=== PATIENT | male | born 1955 | race Caucasian/White ===

== ENCOUNTER → 2018-05-31 | Day surgery (SDC) | payer BC ==
[~2018-05-31] VITALS: Ht 182.9 cm; Wt 81.6 kg
[~2018-05-31] MED LIST: ALTACE10 MG PO; AMLODIPINE BES2.5 MG PO; ASPIRIN81 M1 PO; CENTRUM SILVER1 EAC1 PO; FENTANYL CITRATE/PF 100MCG/2 ML INJ ONE; GABAPENTIN300 MG PO; GLIMEPIRIDE2 MG PO; HEPARIN 25,000 UNIT/D5W 250ML 250 ML IV SCH; HEPARIN 25,000U/0.45% NS 250ML 1,000 UNIT in SODIUM CHLORIDE 0.9% 250ML 0 ML IV SCH; HEPARIN SOD (PORCINE) 1000 UNIT/ML 30ML ONE; HEPARIN SOD (PORCINE) 5,000 UNIT/ML VIAL IV ONE; HEPARIN SOD/SOD CHLORIDE 1,000 ML ONE; HEPARIN SOD/SOD CHLORIDE 2,000 ML ONE; IOPAMIDOL 370 MG/ML 200 ML INFUS..BTL INJ ONE; JANUMET 50-1,01 EACH PO; LAMISIL250 MG PO; LIDOCAINE HCL 2% LOCAL 20 ML VIAL ONE; LIPITOR20 MG PO; METFORMIN HCL500 MG PO; MIDAZOLAM HCL 2 MG/2 ML VIAL ONE; NITROGLYCERIN/D5W 200 MCG/ML 0 ML ONE; SODIUM CHLORIDE 0.9% 1000ML 1,000 ML ONE; TRICOR145 MG PO; VICTOZA 2-0.6 MG/0.1; VITAMIN B12 PO; VITAMIN D1000 UNI1 PO
[2018-05-31 17:31] LABS: BASOPHILS # (AUTO) 0.1 (0.0-0.1); EOSINOPHILS # (AUTO) 0.2 (0.0-0.4); EOSINOPHILS % 1.6 % (0.0-6.0); HEMATOCRIT 32.2 % (38.2-49.6); HEMOGLOBIN 10.7 g/dL (14.0-18.0); LYMPHOCYTES # (AUTO) 1.4 (1.0-3.2); LYMPHOCYTES % 14.7 % (18.0-39.1); MEAN CORPUSCULAR HEMOGLOBIN 30.7 pg (28-32); MEAN CORPUSCULAR HGB CONC 33.2 g/dL (31-35); MEAN CORPUSCULAR VOLUME 92.5 fL (81-99); MONOCYTES # (AUTO) 0.7 (0.2-0.8); MONOCYTES % 7.8 % (4.4-11.3); NEUTROPHILS # (AUTO) 7.1 (2.1-6.9); NEUTROPHILS % 74.6 % (38.7-80.0); PLATELET COUNT 245 x10e3/uL (140-360); RED BLOOD COUNT 3.48 x10e6/uL (4.3-5.7); RED CELL DISTRIBUTION WIDTH 12.6 % (11.7-14.4)
[2018-05-31 17:40] LABS: INR 1.07; PROTHROMBIN TIME 13.1 seconds (11.9-14.5)
[2018-05-31 17:41] LABS: PARTIAL THROMBOPLASTIN TIME 27.2 seconds (23.8-35.5)
[2018-05-31 17:50] LABS: ALANINE AMINOTRANSFERASE 17 IU/L (0-55); ALBUMIN 4.1 g/dL (3.5-5.0); ALBUMIN/GLOBULIN RATIO 1.6 (0.8-2.0); ALKALINE PHOSPHATASE 86 IU/L (40-150); ANION GAP 13.3 mmol/L (8-16); BLOOD UREA NITROGEN 12 mg/dL (7-26); BUN/CREATININE RATIO 11 (6-25); CALCIUM 9.2 mg/dL (8.4-10.2); CARBON DIOXIDE 25 mmol/L (22-29); CHLORIDE 103 mmol/L (98-107); CREATINE KINASE 104 IU/L (30-200); CREATININE, SERUM 1.14 mg/dL (0.72-1.25); EST GLOMERULAR FILTRATION RATE > 60 ML/MIN (60-); GLUCOSE 176 mg/dL (74-118); POTASSIUM 4.3 mmol/L (3.5-5.1); SODIUM 137 mmol/L (136-145)
--- NOTE | 2018-05-31 18:16 | Diagnostic Imaging Report ---
EXAMINATION: CHEST 2 VIEWS INDICATION: Abnormal stress test COMPARISON: Chest x-ray 09/24/2009 FINDINGS: PA and lateral views TUBES and LINES: None. LUNGS: Lungs are well inflated. There is no evidence of pneumonia or pulmonary edema. PLEURA: No pleural effusion or pneumothorax. HEART AND MEDIASTINUM: The heart is normal in size. There is mild aortic ectasia. BONES AND SOFT TISSUES: No focal osseous lesions. Soft tissues are unremarkable. UPPER ABDOMEN: No free air under the diaphragm. IMPRESSION: No acute thoracic abnormality. Signed by: Dr. Henry Handley MD on 05/31/2018 6:12 PM
[2018-05-31 19:39] VITALS: BP 147/80
--- NOTE | 2018-05-31 19:55 | History and Physical ---
CHIEF COMPLAINT: Chest tightness. 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 Stewart because of an abnormal stress test. Patient apparently underwent a stress test today and was found to have ST depressions and was symptomatic. Patient states the past 2 months, he has had worsening dyspnea on exertion, as well as intermittent episodes of chest tightness. Patient is currently chest pain free, but EKG done in the emergency room did reveal ST depressions in the lateral leads. In the emergency room, patient's hemoglobin was low at 10.7 g/dL. Patient's initial troponin-I was elevated at 2.419. X-ray done in the emergency room revealed no acute thoracic abnormality. The patient was found to have a PT/INR of 13.1 and 1.07 respectively. Patient was admitted to the hospital and most likely will go to the heart catheterization lab. REVIEW OF SYSTEMS GENERAL: Weight has been stable. No fever or chills. HEENT: No headaches, no visual changes. CARDIOVASCULAR: Over the last 2 months, patient had dyspnea on exertion and intermittent episodes of exertional angina. GI: Slight nausea today during the stress test. No vomiting. Patient denies any melena or hematochezia. : Denies any hematuria. NEUROMUSCULAR: Denies any limb weakness, numbness. ALLERGIES: NO KNOWN DRUG ALLERGIES. PAST MEDICAL HISTORY 1. Cerebrovascular disease (left frontal ischemic stroke with residual right facial drooping in March 2017). 2. Hypertensive heart disease. 3. Type-2 diabetes mellitus. 4. Hyperlipidemia. 5. Tobacco abuse (patient quit in October 2017). 6. Mild carotid atherosclerosis. SURGICAL HISTORY: Multiple left foot surgeries. FAMILY HISTORY: No family history of strokes, but father had coronary artery disease. SOCIAL HISTORY: The man is , lives with . 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 Patient was a heavy tobacco smoker, but quit in October 2017. Patient says he just drinks alcohol socially. HOME MEDICATIONS 1. Clopidogrel 75 mg daily. 2. Aspirin 81 mg daily. 3. Metformin 500 mg b.i.d. 4. Glimepiride 2 mg daily. 5. Ramipril 10 mg daily. 6. Fenofibrate 145 mg daily. 7. Gabapentin 300 mg nightly. 8. Multivitamins daily. 9. Vitamin B12 500 mcg daily. 10. Atorvastatin 20 mg nightly. 11. Amlodipine 5 mg daily. EXAM GENERAL: He is awake, alert, not in distress, very pleasant, and cooperative with exam. At this time, he does not appear to be in any distress. VITALS: Blood pressure is 125/72, pulse 84, respiratory rate 16, temperature 98.2, oxygen saturation 97% on room air. Height is 6 feet 0 inch. Weight 180 lbs. BMI 24. INTEGUMENT: Skin is warm and dry. No pallor, jaundice, diaphoresis. HEENT: Anicteric sclerae. Moist mucous membranes. NECK: Supple. CARDIOVASCULAR: Distant heart sounds. Regular rate and rhythm. LUNGS: No rales, no rhonchi, no wheezes. ABDOMEN: Benign. EXTREMITIES: No edema or deformity. NEUROLOGIC: Patient has no focal deficits at this time, no dysarthria, no facial drooping. DIAGNOSES 1. Acute coronary syndrome (Non ST elevated myocardial infarction). 2. Cerebrovascular disease (history of left-sided cerebrovascular accident in March 2017). 3. Hypertensive heart disease. 4. Type-2 diabetes mellitus. 5. Hyperlipidemia. 6. Previous tobacco smoker, quit in October 2017. PLAN 1. Commend patient for his wanting to quit smoking tobacco. 2. Patient will go to the catheterization lab today. 3. Will check results of the 2-D echocardiogram. 4. Will check lipid profile. 5. Continue home medications. 6. We discussed the case with cardiology. I spent 40 minutes in the care of the patient. Job#: [id number] BRISEIDA
[2018-05-31 19:56] LABS: CHOL/HDL RATIO 2.3 (3.9-4.7)
--- NOTE | 2018-05-31 21:16 | Operative Report ---
DATE OF PROCEDURE: May 31, 2018 [employer] ASSISTANT PROCEDURE INDICATION: Non-ST segment elevation myocardial infarction. PROCEDURES PERFORMED 1. Left heart catheterization. 2. Selective coronary angiography. 3. Placement of intraaortic balloon pump. COMPLICATIONS: None. RECOMMENDATIONS: Emergency coronary artery bypass surgery. Access was obtained in the right femoral artery. A 6-Spanish sheath was placed. Diagnostic coronary angiogram revealed distal left main of at least 90% stenosis with visible thrombus. Left anterior descending, circumflex, diagonal views right coronary artery had mild disease of 20%-30%. Left internal mammary artery was widely patent. Sheath was exchanged with 8.5-Spanish sheath. Intraaortic balloon pump 40 mL was introduced and counter pulsation initiated without complications. Sheath was secured in place. Patient was transferred for emergency coronary artery bypass surgery. Job#: [id number] CQ
== END | disposition other institution (70) ==
LOC: ER 16:41 → CATH LAB 19:03
PROVIDERS: ATTEND Internal Medicine
DX: I21.4 Non-ST elevation (NSTEMI) myocardial infarction (principal); I69.392 Facial weakness following cerebral infarction; I11.9 Hypertensive heart disease without heart failure; E11.9 Type 2 diabetes mellitus without complications; E78.5 Hyperlipidemia, unspecified; Z79.02 Long term (current) use of antithrombotics/antiplatelets; Z79.82 Long term (current) use of aspirin; Z79.84 Long term (current) use of oral hypoglycemic drugs; Z87.891 Personal history of nicotine dependence; Z82.49 Family history of ischemic heart disease and other diseases of the circulatory system
CPT/HCPCS: 33967; 36415; 71046; 80053; 80061; 82550; 82553; 84484; 85025; 85610; 85730; 93005; 93455; 99284; J1644 ×2; J2001; J2250; J7030; J7050; Q9967

== ENCOUNTER → 2018-07-30 | Day surgery (SDC) | payer BC ==
[~2018-07-30] MED LIST changes: +ATORVASTATIN CA80 MG PO; +GLIMEPIRIDE1 MG; -HEPARIN 25,000 UNIT/D5W 250ML 250 ML IV SCH; -HEPARIN 25,000U/0.45% NS 250ML 1,000 UNIT in SODIUM CHLORIDE 0.9% 250ML 0 ML IV SCH; -HEPARIN SOD (PORCINE) 1000 UNIT/ML 30ML ONE; -HEPARIN SOD (PORCINE) 5,000 UNIT/ML VIAL IV ONE; -HEPARIN SOD/SOD CHLORIDE 1,000 ML ONE; -HEPARIN SOD/SOD CHLORIDE 2,000 ML ONE; -IOPAMIDOL 370 MG/ML 200 ML INFUS..BTL INJ ONE; -LIDOCAINE HCL 2% LOCAL 20 ML VIAL ONE; +METOPROLOL TART25 MG PO; -NITROGLYCERIN/D5W 200 MCG/ML 0 ML ONE; +OR PHACO EYE KIT ONE; +PREOP PHACO EYE KIT ONE; -SODIUM CHLORIDE 0.9% 1000ML 1,000 ML ONE
--- OUTSIDE RECORDS SUMMARY | 2018-07-30 14:48 | XMS REPORT | Continuity of Care Document ---
Author Author [facility] Interface Address Unknown Phone Unavailable Problems Problem Status Onset Date Classification Date Reported Comments Source DX: M86.9=OSTEOMYELITIS, UNSPECIFIED//3 Active 11/13/2016 [facility] Medications Medication Details Route Status Patient Instructions Ordering Provider Order Date Source Allergies, Adverse Reactions, Alerts Substance Category Reaction Severity Reaction type Status Date Reported Comments Source Immunizations Immunization Date Given Site Status Last Updated Comments Source Results Order Name Results Value Reference Range Date Interpretation Comments Source Bone scan 3 phase NM Bone scan 3 phase NM TRIPLE PHASE BONE SCAN OF THE FEET: HISTORY: Left 3rd toe wound. TECHNIQUE: 27.4 mCi of technetium 99m MDP were given intravenously followed by perfusion, blood pool and delayed static imaging over the feet. FINDINGS: There is increased perfusion and blood pool activity in the left foot with focally increased blood pool activity seen in the left midfoot and 1st toe. There is increased osseous activity in the left midfoot. There is increased activity in the left 1st metatarsal. There is focally increased osseous activity in the left 3rd toe. There are no other imaging studies available for comparison. IMPRESSION: 1. Findings suspicious for osteomyelitis of the left 1st metatarsal. Radiographic or higher-level imaging correlation is recommended. 2. Findings suspicious for osteomyelitis in the left 3rd toe. 3. Activity in the left midfoot most likely representing arthropathy. [id number] 11/17/2016 - - Read by: Jeyson Alicea MD Dictated Date/time: 11/17/16 16:20 Electronically Signed by: Jeyson Alicea MD 11/17/16 16:25 FINAL REPORT [facility] Vital Signs Vital Sign Value Date Comments Source Encounters Location Location Details Encounter Type Encounter Number Reason For Visit Attending Provider ADM Date DC Date Status Source [facility] Out[facility] [id number] Dionte Edward 11/17/2016 11/18/2016 [facility] Procedures Procedure Code Date Perfomer Comments Source
--- OUTSIDE RECORDS SUMMARY | 2018-07-30 14:48 | XMS REPORT | Clinical Summary ---
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 Disp. Refills Start End Date Status Date gabapentin (NEURONTIN) Take 300 mg by mouth 2 Active 300 MG capsule (two) times daily. ramipril (ALTACE) 10 MG Take 20 mg by mouth Active capsule daily. metFORMIN (GLUCOPHAGE) Take 1,000 mg by mouth Active 1000 MG tablet every morning. metFORMIN (GLUCOPHAGE) Take 500 mg by mouth Active 500 MG tablet every evening. glimepiride (AMARYL) 1 MG Take 1 mg by mouth 2 Active tablet (two) times daily. vitamin E 400 UNIT Take 400 Units by mouth Active capsule daily. cholecalciferol, vitamin Take 1,000 Units by mouth Active D3, 2,000 unit Cap daily. mwuatloz-qrpx-sjf-folic Take 1 tablet by mouth. Active acid (MOXWOKTWODJG-XURN-NHGFIJ LS-FOLIC ACID) 3,500-18-0.4 unit-mg-mg Chew cyanocobalamin (VITAMIN Take 1,000 mcg by mouth Active B-12) 1000 MCG tablet daily. aspirin 81 MG EC tablet Take 1 tablet (81 mg 30 tablet 0 06/09/06/09/20 Active total) by mouth daily. 18 19 atorvastatin (LIPITOR) 80 Take 1 tablet (80 mg 30 tablet 0 06/08/06/08/20 Active MG tablet total) by mouth nightly. 18 19 furosemide (LASIX) 20 MG Take 1 tablet (20 mg 30 tablet 0 06/10/06/10/20 Active tablet total) by mouth daily. 18 19 metoprolol (LOPRESSOR) 25 Take 1 tablet (25 mg 60 tablet 0 06/09/20 06/09/20 Active MG tablet total) by mouth 2 (two) 18 19 times daily. clopidogrel (PLAVIX) 75 Take 75 mg by mouth 06/08/20 Discontin mg tablet daily. 18 ued amLODIPine (NORVASC) 5 MG Take 10 mg by mouth 06/08/20 Discontin tablet daily. 18 ued atorvastatin (LIPITOR) 40 Take 40 mg by mouth every 06/08/20 Discontin MG tablet evening. 18 ued aspirin 325 MG tablet Take 200 mg by mouth 06/08/20 Discontin daily. 18 ued acetaminophen-codeine Take 1 tablet by mouth 20 tablet 0 06/08/20 06/13/20 (TYLENOL #3) 300-30 mg every 6 (six) hours as 18 18 per tablet needed for up to 5 days. Max Daily Amount: 4 tablets clobetasol (TEMOVATE) Apply topically 2 (two) 30 g 0 06/08/20 06/22/20 0.05 % ointment times daily as needed for 18 18 up to 14 days Neck/abdomen/thighs: itchiness/redness. Avoid thoracotomy site.. hydrocortisone 1 % cream Apply topically 2 (two) 30 g 0 06/08/20 06/22/20 times daily as needed for 18 18 up to 14 days Apply to groin to the red itchy spots.. metoprolol (LOPRESSOR) 25 Take 0.5 tablets (12.5 mg 30 tablet 0 06/08/20 06/09/20 Discontin MG tablet total) by mouth 2 (two) 18 18 ued times daily. clindamycin (CLEOCIN T) 1 Apply topically 2 (two) 60 mL 0 06/09/20 06/16/20 % lotion times daily for 7 days 18 18 Apply to medial thighs. metoprolol (LOPRESSOR) 25 Take 1 tablet (25 mg 30 tablet 0 06/09/20 06/09/20 Discontin MG tablet total) by mouth 2 (two) 18 18 ued times daily. Active Problems Problem Noted Date On intra-aortic balloon pump assist 06/01/2018 H/O diabetic neuropathy 06/01/2018 Respiratory insufficiency 06/01/2018 Hyperglycemia due to type 2 diabetes mellitus (HCC) 06/01/2018 NSTEMI (non-ST elevated myocardial infarction) (HCC) 05/31/2018 Coronary arteriosclerosis due to lipid rich plaque Type 2 diabetes mellitus with hyperglycemia, without long-term current use of insulin ([facility]) Encounters Date Type Specialty Care Team Description 06/13/2018 Office Visit Cardiology Ita Britton, Post-operative state (Primary Dx) 06/03/2018 Anesthesia Toby Mcclellan MD Event 06/03/2018 Procedure Pass 06/03/2018 Surgery Ita Britton, BYPASS,AORTO CORONARY ELIF/SVG 06/01/2018 Orders Only General Internal Medicine 05/31/2018 Hospital Cardiology Rufina Barriga MD NSTEMI (non-ST elevated - Encounter Christian Iverson MD myocardial infarction) 06/09/2018 ([facility]) (Primary Dx);On intra-aortic balloon pump assist;Coronary arteriosclerosis due to lipid rich plaque;Type 2 diabetes mellitus with hyperglycemia, without long-term current use of insulin ([facility]);Respiratory insufficiency after 07/29/2017 Family History Medical History Relation Name Comments Heart failure Father Relation Name Status Comments Father Mother Alive Social History Tobacco Use Types Packs/Day Years Used Date Former Smoker Cigarettes 1 40 Quit: 02/2018 Smokeless Tobacco: Never Used Tobacco Cessation: Counseling Given: Yes Alcohol Use Drinks/Week oz/Week Comments Yes 6 Cans of 3.6 6 beers per week beer Sex Assigned at Date Recorded Not on file Last Filed Vital Signs Vital Sign Reading Time Taken Blood Pressure 104/56 06/13/2018 8:55 AM CDT Pulse 71 06/13/2018 8:55 AM CDT Temperature 37 C (98.6 F) 06/13/2018 8:55 AM CDT Respiratory Rate 18 06/13/2018 8:55 AM CDT Oxygen Saturation 98% 06/13/2018 8:55 AM CDT Inhaled Oxygen - - Concentration Weight 90.7 kg (200 lb) 06/13/2018 8:55 AM CDT Height 182.9 cm (6') 06/13/2018 8:55 AM CDT Body Mass Index 27.12 06/13/2018 8:55 AM CDT Plan of Treatment Not on file Procedures Procedure Name Priority Date/Time Associated Diagnosis Comments ENDOSCOPIC HARVEST,VEIN 06/03/2018 Coronary artery disease 9:00 AM CDT with angina pectoris, unspecified vessel or lesion type, unspecified whether iroquois or transplanted heart (HCC) BYPASS,AORTO CORONARY 06/03/2018 Coronary artery disease ELIF/SVG 9:00 AM CDT with angina pectoris, unspecified vessel or lesion type, unspecified whether iroquois or transplanted heart (HCC) after 07/29/2017 Results * RHYTHM STRIP - SCAN (06/11/2018 10:20 AM) * POC-Glucose meter (06/09/2018 12:52 PM) Only the most recent of 40 results within the time period is included. Component Value Ref Range POC-Glucose Meter 197 (H)Comment: TESTED AT [address] 70 - 110 mg/dL [facility] [id number] Specimen Performing Laboratory Blood [address] [address] * Basic Metabolic Panel (06/09/2018 5:11 AM) Only the most recent of 10 results within the time period is included. Component Value Ref Range Sodium 138 136 - 145 meq/L Potassium 3.8 3.5 - 5.1 meq/L Chloride 104 98 - 107 meq/L CO2 26 22 - 29 meq/L BUN 16 7 - 21 mg/dL Creatinine 1.19 0.57 - 1.25 mg/dL Glucose 175 (H) 70 - 105 mg/dL Calcium 8.5 8.4 - 10.2 mg/dL EGFR 62Comment: ESTIMATED GFR IS NOT ACCURATE mL/min/1.73 sq m CREATININE CLEARANCE IN PREDICTING GLOMERULAR FILTRATION RATE. ESTIMATED GFR IS NOT APPLICABLE FOR DIALYSIS PATIENTS. Specimen Performing Laboratory Blood [address] [address] * CBC with platelet count + automated diff (06/08/2018 5:23 AM) Only the most recent of 7 results within the time period is included. Component Value Ref Range WBC 9.4 3.5 - 10.5 K/L RBC 2.88 (L) 4.63 - 6.08 M/L Hemoglobin 8.6 (L) 13.7 - 17.5 GM/DL Hematocrit 27.1 (L) 40.1 - 51.0 % MCV 94.1 (H) 79.0 - 92.2 fL MCH 29.9 25.7 - 32.2 pg MCHC 31.7 (L) 32.3 - 36.5 GM/DL RDW 13.7 11.6 - 14.4 % Platelets 302 150 - 450 K/CU MM MPV 10.6 9.4 - 12.4 fL nRBC 0 0 - 0 /100 WBC % Neutros 66 % % Lymphs 15 % % Monos 12 % % Eos 6 % % Baso 0 % # Neutros 6.24 (H) 1.78 - 5.38 K/L # Lymphs 1.39 1.32 - 3.57 K/L # Monos 1.12 (H) 0.30 - 0.82 K/L # Eos 0.55 (H) 0.04 - 0.54 K/L # Baso 0.02 0.01 - 0.08 K/L Immature 1 0 - 1 % Granulocytes-Relative Specimen Performing Laboratory Blood - Arm, [place] [address] * CBC with platelet count + automated diff (06/08/2018 5:23 AM) Only the most recent of 7 results within the time period is included. Specimen Performing Laboratory Blood Narrative The following orders were created for panel order CBC with platelet count + automated diff. Procedure Abnormality Status --------- ------ CBC with platelet count ...[[id number]]AbnormalFinal result Please view results for these tests on the individual orders. * US testicular (scrotum) (06/07/2018 3:58 PM) Specimen Performing Laboratory GE [facility] Narrative FINAL REPORT TECHNIQUE: Grayscale, color Doppler, and spectral Doppler ultrasound of the scrotum and testicles. INDICATION: 63-year-old man with scrotal edema. COMPARISON: None. FINDINGS: RIGHT TESTIS: Measures 4.1 x 3 x 2.9 cm. Normal echotexture without focal lesions. LEFT TESTIS: Measures 4.2 x 2.5 x 2.8 cm. Normal echotexture without focal lesions. VASCULAR: There are symmetric, arterial waveforms detected in both testes. No varicocele. EPIDIDYMIDES: Unremarkable. SCROTUM: Bilateral hydroceles, small-moderate on the right and small on the left. The scrotal wall is thickened. IMPRESSION: Testicles are unremarkable. Bilateral hydroceles. Scrotal wall thickening, likely secondary to edema. Signed: Mario Hernandez MD Report Verified Date/Time:06/07/2018 16:12:07 Reading Location: [address] Ultrasound Reading Room Procedure Note Interface, External Ris In - 06/07/2018 4:14 PM CDT FINAL REPORT TECHNIQUE: Grayscale, color Doppler, and spectral Doppler ultrasound of the scrotum and testicles. INDICATION: 63-year-old man with scrotal edema. COMPARISON: None. FINDINGS: RIGHT TESTIS: Measures 4.1 x 3 x 2.9 cm. Normal echotexture without focal lesions. LEFT TESTIS: Measures 4.2 x 2.5 x 2.8 cm. Normal echotexture without focal lesions. VASCULAR: There are symmetric, arterial waveforms detected in both testes. No varicocele. EPIDIDYMIDES: Unremarkable. SCROTUM: Bilateral hydroceles, small-moderate on the right and small on the left. The scrotal wall is thickened. IMPRESSION: Testicles are unremarkable. Bilateral hydroceles. Scrotal wall thickening, likely secondary to edema. Signed: Mario Hernandez MD Report Verified Date/Time: 06/07/2018 16:12:07 Reading Location: [address] Ultrasound Reading Room * XR chest 1 view portable / bedside (06/07/2018 5:06 AM) Only the most recent of 8 results within the time period is included. Specimen Performing Laboratory [facility] Narrative FINAL REPORT INDICATION: s/p ACB TECHNIQUE: Chest radiograph, single view, portable technique. FINDINGS / IMPRESSION: Left base chest tube is removed. There is suggestion of a tiny left apical pneumothorax. Evidence of coronary artery bypass surgery with stable cardiac and mediastinal contours. Probable bilateral small pleural effusions with bibasilar opacities likely representing related atelectasis. No pulmonary venous congestion. Signed: Christopher Cabrera MD Report Verified Date/Time:06/07/2018 08:22:24 Reading Location: [facility] Procedure Note Interface, External Ris In - 06/07/2018 8:24 AM CDT FINAL REPORT INDICATION: s/p ACB TECHNIQUE: Chest radiograph, single view, portable technique. FINDINGS / IMPRESSION: Left base chest tube is removed. There is suggestion of a tiny left apical pneumothorax. Evidence of coronary artery bypass surgery with stable cardiac and mediastinal contours. Probable bilateral small pleural effusions with bibasilar opacities likely representing related atelectasis. No pulmonary venous congestion. Signed: Christopher Cabrera MD Report Verified Date/Time: 06/07/2018 08:22:24 Reading Location: [facility] * TRANSFUSION SERVICE REPORT - SCAN (06/06/2018 6:00 PM) Only the most recent of 4 results within the time period is included. * CBC (hemogram only) (06/06/2018 4:19 AM) Only the most recent of 7 results within the time period is included. Component Value Ref Range WBC 10.4 3.5 - 10.5 K/L RBC 3.12 (L) 4.63 - 6.08 M/L Hemoglobin 9.5 (L) 13.7 - 17.5 GM/DL Hematocrit 29.3 (L) 40.1 - 51.0 % MCV 93.9 (H) 79.0 - 92.2 fL MCH 30.4 25.7 - 32.2 pg MCHC 32.4 32.3 - 36.5 GM/DL RDW 14.4 11.6 - 14.4 % Platelets 186 150 - 450 K/CU MM MPV 11.1 9.4 - 12.4 fL nRBC 0 0 - 0 /100 WBC Specimen Performing Laboratory Blood - Arm, [place] [address] * Phosphorus (06/06/2018 4:19 AM) Only the most recent of 4 results within the time period is included. Component Value Ref Range Phosphorus 2.3 2.3 - 4.7 mg/dL Specimen Performing Laboratory Blood - Arm, [address] [address] Narrative Check Serum Magnesium level 2 hours after IV magnesium replacement. Check Serum Phosphorus level 4 hours after IV phosphorus replacement or 8 hours after PO replacement completed. * Magnesium (06/06/2018 4:19 AM) Only the most recent of 7 results within the time period is included. Component Value Ref Range Magnesium 1.9 1.6 - 2.6 mg/dL Specimen Performing Laboratory Blood - Arm, Left [address] [address] Narrative Check Serum Magnesium level 2 hours after IV magnesium replacement. Check Serum Phosphorus level 4 hours after IV phosphorus replacement or 8 hours after PO replacement completed. * Prepare Leuko-Red RBC (06/05/2018 11:54 PM) Only the most recent of 3 results within the time period is included. Component Value Ref Range CROSSMATCH COMPATIBLE Unit ABO O Pos UNIT NUMBER [id number] Status TRANSFUSED Blood Bank Product RED BLOOD CELLS PRODUCT CODE [id number] Specimen Performing Laboratory Other [facility] [place] * Troponin I (06/05/2018 1:06 AM) Only the most recent of 11 results within the time period is included. Component Value Ref Range Troponin I 1.05 (HH) 0.00 - 0.03 ng/mL Specimen Performing Laboratory Blood - Line, Arterial [address] [address] Narrative Troponin I (TnI) levels must be interpreted in the context of the presenting symptoms and the clinical findings. Elevated TnI levels indicate myocardial damage, but are not specific for ischemic heart disease. Elevated TnI levels are seen in patients with other cardiac conditions (including myocarditis and congestive heart failure), and slight TnI elevations occur in patients with other conditions, including sepsis, renal failure, acidosis, acute neurological disease, and persistent tachyarrhythmia. * Creatine Kinase (CK), Total and MB (06/05/2018 1:06 AM) Only the most recent of 13 results within the time period is included. Component Value Ref Range Total CK 453 (H) 29 - 200 U/L CK-MB 5.3 0.0 - 6.6 ng/mL MB Relative Index 1.2 % Specimen Performing Laboratory Blood - Line, Arterial [address] [address] Narrative CK-MB Reference Range: <6.7Normal 6.7-10.0Borderline >10.0 Abnormal * Transfuse Leuko-Red RBC (06/04/2018 11:05 AM) Only the most recent of 4 results within the time period is included. * Glucose-Stat Lab (06/04/2018 7:37 AM) Only the most recent of 14 results within the time period is included. Component Value Ref Range Glucose 103 70 - 110 mg/dL Specimen Performing Laboratory Blood, Arterial - Line, [facility] Arterial [address] [place] [address] * Blood gas, arterial (06/04/2018 7:37 AM) Only the most recent of 14 results within the time period is included. Component Value Ref Range pH, Arterial 7.38 7.35 - 7.45 pCO2, Arterial 35 35 - 45 mmHg pO2, Arterial 89 80 - 90 mmHg O2 Sat, Arterial 96.7 96.0 - 97.0 % HCO3, Arterial 20 (L) 21 - 29 mmol/L Base Excess, Arterial -4.1 (L) -2.0 - 3.0 mmol/L Patient Temperature 37.2 C FIO2 40.0 % Specimen Performing Laboratory Blood, Arterial - Line, [facility] Arterial [address] [place] [address] * Oxygen saturation, measured (06/04/2018 6:11 AM) Component Value Ref Range O2 Saturation (Measured) 67.6 % Specimen Performing Laboratory Blood [address] [address] * HGB/HCT (H&H)-Stat Lab (06/04/2018 6:11 AM) Only the most recent of 13 results within the time period is included. Component Value Ref Range Hemoglobin 7.9 (L) 13.0 - 16.8 g/dL Hematocrit 23.0 (L) 40.0 - 50.0 % Specimen Performing Laboratory Blood, Arterial [address] [address] * RRL Critical Labs (ABG,NA,K,H&H,GLU) (06/04/2018 4:27 AM) Only the most recent of 10 results within the time period is included. Specimen Performing Laboratory Blood, Arterial Narrative The following orders were created for panel order RRL Critical Labs (ABG,NA,K,H&H,GLU). Procedure Abnormality Status --------- ------ Blood gas, arterial[[id number]]Abnorma lFinal result Sodium Na-Stat Lab[[id number]] NormalFinal result Potassium-Stat Lab[[id number]] Normal Final result Glucose-Stat Lab[[id number]] AbnormalFinal result HGB/HCT (H&H)-Stat Lab[[id number]] AbnormalFinal result Please view results for these tests on the individual orders. * Platelet Aggregation: Function Screen (06/04/2018 4:27 AM) Only the most recent of 4 results within the time period is included. Component Value Ref Range Weak ADP 96 (H) 60 - 91 % Plt. Function Screen 60-100% indicates normal platelet function Interpretation Pathologist: Kerrie Corea MD (electronic signature) Platelets 121 (L) 150 - 450 K/CU MM Specimen Performing Laboratory Blood [address] [address] * Potassium-Stat Lab (06/04/2018 4:27 AM) Only the most recent of 11 results within the time period is included. Component Value Ref Range Potassium 4.2 3.6 - 5.5 meq/L Specimen Performing Laboratory Blood, Arterial [address] [address] * Sodium Na-Stat Lab (06/04/2018 4:27 AM) Only the most recent of 10 results within the time period is included. Component Value Ref Range Sodium 140 135 - 148 meq/L Specimen Performing Laboratory Blood, [address] [address] * Calcium, Ionized (06/04/2018 4:27 AM) Only the most recent of 7 results within the time period is included. Component Value Ref Range Calcium, Ion 1.12 1.12 - 1.27 mmol/L pH, Blood 7.38 Specimen Performing Laboratory Blood [address] [address] * Lactic acid, arterial, whole blood (06/04/2018 4:27 AM) Only the most recent of 2 results within the time period is included. Component Value Ref Range Lactate, Art 0.7 0.5 - 2.2 mmol/L Specimen Performing Laboratory Blood, Arterial [address] [address] Narrative Effective 02/16/2016: Units/Reference Range Change New: 0.5-2.2 mmol/LPrevious: 5-20 mg/dL * PT/aPTT (06/03/2018 4:41 PM) Only the most recent of 6 results within the time period is included. Component Value Ref Range Protime 17.6 (H) 11.7 - 14.7 seconds INR 1.5 <=5.9 PTT 28.7 22.5 - 36.0 seconds Specimen Performing Laboratory Blood [address] [address] Narrative RECOMMENDED COUMADIN/WARFARIN INR THERAPY RANGES STANDARD DOSE: 2.0 - 3.0 Includes: PROPHYLAXIS for venous thrombosis, systemic embolization; TREATMENT for venous thrombosis and/or pulmonary embolus. HIGH RISK: Target INR is 2.5-3.5 for patients with mechanical heart valves. * ANESTHESIA ASHLEY (06/03/2018 2:45 PM) Narrative Toby Mcclellan MD 06/03/20182:45 PM ASHLEY Date: 06/03/2018 10:15 AM Sex: Male Location: OR Requesting Physician: ITA BRITTON Examiner: TOBY MCCLELLAN MA, CHRISTOPHER Indication: CABGIntubatedSedated Insertion: easy Probe Type: multiplane Modalities: 2D, CWD and PWD Aorta Size Dissection Plaque Thick Plaque Mobile Ascending Ao normal No < 3mm No Ao Arch normal No < 3mm No Descending Ao normal No < 3mm No Valves Annulus Stenosis Area (cm3) Gradient Regurgitation Leaflet Morphology Leaflet Motion Not Visualized Aortic valve normal none none normal normal Mitral valve normal none trivial (1+) normal normal Tricuspid normal none none normal normal Atria Size SEC Thrombus Tumor Device Right Atrium normal No No No No Left Atrium normal No No No device Interatrial Septum: Morphology: normal ASD: Shunt: Interventricular Septum: Morphology: normal Defect: Shunt: Ventricles Cavity size Dimension Hypertrophy Thrombus Global FXN EF Right ventricle normalNo No normal Left ventricle dilated 5.8 No No normal Pericardium: normal Pre Intervention Summary: 63 yo male presents for CABG Pt with IABP 1:1 LV chamber dilated (MARY ~5.7-5.8), increased wall thickness, LVEF grossly normal with no RWMAs.No diastolic dysfunction RV not dilated and with grossly normal function AV - tricuspid with normal leaflet motion.No AI or MV - mild-moderate MR by VC (0.43).No MS.No S blunting in LUPV PW TV - normal leaflet motion.Annulus not dilated.No TR or TS LINDSEY - no SEC or thrombus visualized.Velocity >40 cm/s No PFO by doppler No effusion seen IABP seen in descending aorta, appropriately placed with distal tip 2.3 cm from L SC takeoff No dissection or aneurysm seen in root, ascending, or distal aortic arch The above was communicated to the surgical team Post Intervention Summary:S/p CABG. IABP 1:1, no inotropes. LV size and function unchanged from prior. No appreciated RWMA. RV size and function unchanged from prior No interval valvular pathology Ao without interval pathology. IABP balloon tip 3.5 cm from L SCA. Procedure Note Toby Mcclellan MD - 06/03/2018 10:15 AM CDT Formatting of this note may be different from the original. ASHLEY Date: 06/03/2018 10:15 AM Sex: Male Location: OR Requesting Physician: ITA BRITTON Examiner: TOBY MCCLELLAN MA, CHRISTOPHER Indication: CABG Intubated Sedated Insertion: easy Probe Type: multiplane Modalities: 2D, CWD and PWD Aorta Size Dissection Plaque Thick Plaque Mobile Ascending Ao normal No < 3mm No Ao Arch normal No < 3mm No Descending Ao normal No < 3mm No Valves Annulus Stenosis Area (cm3) Gradient Regurgitation Leaflet Morphology Leaflet Motion Not Visualized Aortic valve normal none none normal normal Mitral valve normal none trivial (1+) normal normal Tricuspid normal none none normal normal Atria Size SEC Thrombus Tumor Device Right Atrium normal No No No No Left Atrium normal No No No device Interatrial Septum: Morphology: normal ASD: Shunt: Interventricular Septum: Morphology: normal Defect: Shunt: Ventricles Cavity size Dimension Hypertrophy Thrombus Global FXN EF Right ventricle normal No No normal Left ventricle dilated 5.8 No No normal Pericardium: normal Pre Intervention Summary: 63 yo male presents for CABG Pt with IABP 1:1 LV chamber dilated (MARY ~5.7-5.8), increased wall thickness, LVEF grossly normal with no RWMAs. No diastolic dysfunction RV not dilated and with grossly normal function AV - tricuspid with normal leaflet motion. No AI or MV - mild-moderate MR by VC (0.43). No MS. No S blunting in LUPV PW TV - normal leaflet motion. Annulus not dilated. No TR or TS LINDSYE - no SEC or thrombus visualized. Velocity >40 cm/s No PFO by doppler No effusion seen IABP seen in descending aorta, appropriately placed with distal tip 2.3 cm from L SC takeoff No dissection or aneurysm seen in root, ascending, or distal aortic arch The above was communicated to the surgical team Post Intervention Summary: S/p CABG. IABP 1:1, no inotropes. LV size and function unchanged from prior. No appreciated RWMA. RV size and function unchanged from prior No interval valvular pathology Ao without interval pathology. IABP balloon tip 3.5 cm from L SCA. * POC ACTIVATED CLOTTING TIME (06/03/2018 2:36 PM) Only the most recent of 6 results within the time period is included. Component Value Ref Range Activated Clotting Time 120Comment: TESTED AT [address] [address] Specimen Performing Laboratory Blood [address] [address] * Thromboelastograph (TEG) (06/03/2018 2:32 PM) Component Value Ref Range TEG Activated Clotting 5.8 4.0 - 7.0 minutes Time TEG Fibrinogen Activity 67.1 61.0 - 73.0 degrees TEG Platelet Aggregation 60.7 55.0 - 65.0 MM TEG-H Activated Clotting 6.2 4.0 - 7.0 minutes Time TEG-H Fibrinogen Activity 68.3 61.0 - 73.0 degrees TEG-H Platelet 56.6 55.0 - 65.0 MM Aggregation Specimen Performing Laboratory [address] [address] * aPTT (06/03/2018 2:32 PM) Only the most recent of 5 results within the time period is included. Component Value Ref Range PTT 28.3 22.5 - 36.0 seconds Specimen Performing Laboratory [address] [address] * Prothrombin time/INR (06/03/2018 2:32 PM) Only the most recent of 3 results within the time period is included. Component Value Ref Range Protime 18.7 (H) 11.7 - 14.7 seconds INR 1.6 <=5.9 Specimen Performing Laboratory Blood [address] [address] Narrative RECOMMENDED COUMADIN/WARFARIN INR THERAPY RANGES STANDARD DOSE: 2.0 - 3.0 Includes: PROPHYLAXIS for venous thrombosis, systemic embolization; TREATMENT for venous thrombosis and/or pulmonary embolus. HIGH RISK: Target INR is 2.5-3.5 for patients with mechanical heart valves. * Fibrinogen (06/03/2018 2:32 PM) Only the most recent of 3 results within the time period is included. Component Value Ref Range Fibrinogen 347 225 - 434 mg/dl Specimen Performing Laboratory Blood [address] [address] * Platelet count (06/03/2018 2:32 PM) Only the most recent of 2 results within the time period is included. Component Value Ref Range Platelets 107 (L) 150 - 450 K/CU MM Specimen Performing Laboratory Blood [address] [address] * Filter Ionized Calcium (06/03/2018 11:00 AM) Component Value Ref Range Filter Ionized Calcium 1.19 mmol/L Specimen Performing Laboratory Blood [address] [address] Narrative Reference Range: No Normals * Prepare plasma (06/03/2018 8:53 AM) Component Value Ref Range Unit ABO O Pos UNIT NUMBER [id number] Status READY Blood Bank Product FFP PRODUCT CODE G6920D02 Unit ABO O Pos UNIT NUMBER [id number] Status READY Blood Bank Product FFP PRODUCT CODE [id number] Specimen Performing Laboratory Blood [place] * Urinalysis w/ Microscopic (06/02/2018 3:13 PM) Component Value Ref Range Color, UA Yellow Clarity, UA Clear Specific Marcella, UA 1.008 1.001 - 1.035 pH, UA 5.0 5.0 - 8.0 Protein, UA Negative Negative Glucose, UA Negative Negative Ketones, UA Negative Negative Bilirubin, UA Negative Negative Blood, UA Negative Negative Nitrite, UA Negative Negative Leukocytes, UA Negative Negative Urobilinogen, UA 0.2 0.2 - 1.0 mg/dL RBC, UA 0 /HPF WBC, UA <1 /HPF Specimen Source Specimen Performing Laboratory Urine [address] [address] * TSH (06/02/2018 3:13 PM) Component Value Ref Range TSH 1.18 0.35 - 4.94 uIU/mL Specimen Performing Laboratory Blood [address] [address] * ECG 12 lead (06/02/2018 5:11 AM) Only the most recent of 3 results within the time period is included. Specimen Performing Laboratory GE MUSE Narrative Ventricular Rate 65 BPM Atrial Rate 65 BPM P-R Interval 156 ms QRS Duration 96 ms Q-T Interval 434 ms QTC Calculation(Bazett) 451 ms P [place] 31 degrees R [place] 0 degrees T [place] 94 degrees Poor data quality, interpretation may be adversely affected Normal sinus rhythm ST & T wave abnormality, consider anterolateral ischemia Abnormal ECG When compared with ECG of 01-JUN-2018 18:29, No significant change was found Confirmed by MD KATY, IHAB ([id number]) on 06/03/2018 9:19:27 PM Procedure Note Interface, External Ris In - 06/03/2018 9:19 PM CDT Ventricular Rate 65 BPM Atrial Rate 65 BPM P-R Interval 156 ms QRS Duration 96 ms Q-T Interval 434 ms QTC Calculation(Bazett) 451 ms P [place] 31 degrees R [place] 0 degrees T [place] 94 degrees Poor data quality, interpretation may be adversely affected Normal sinus rhythm ST & T wave abnormality, consider anterolateral ischemia Abnormal ECG When compared with ECG of 01-JUN-2018 18:29, No significant change was found Confirmed by MD AKTY, IHAB ([id number]) on 06/03/2018 9:19:27 PM * Iron, TIBC, % sat. (without ferritin) (06/02/2018 5:03 AM) Component Value Ref Range Iron 80 40 - 160 ug/dL TIBC 265 250 - 450 ug/dL Iron % Saturation 30 20 - 55 % Specimen Performing Laboratory Blood [address] [address] * Transferrin (06/02/2018 5:03 AM) Component Value Ref Range Transferrin 212 174 - 382 mg/dL Specimen Performing Laboratory Blood [address] [address] * Iron, serum (06/02/2018 5:03 AM) Component Value Ref Range Iron 80 40 - 160 ug/dL Specimen Performing Laboratory Blood [address] [address] * Ferritin (06/02/2018 5:03 AM) Component Value Ref Range Ferritin 180 5 - 275 ng/mL Specimen Performing Laboratory Blood [address] [address] * ECHOCARDIOGRAM REPORT - SCAN (06/01/2018 5:26 PM) * Hemoglobin A1c (06/01/2018 11:57 AM) Component Value Ref Range Hemoglobin A1C 6.9 (H) 4.3 - 6.1 % Specimen Performing Laboratory Blood [address] [address] * 2D Echo W/Doppler(CW/PW/Color) (06/01/2018 10:07 AM) Component Value Ref Range Ejection Fraction Specimen Performing Laboratory SLE ECHO HEARTLAB [facility] CPACS Narrative Transthoracic Echocardiography Report (TTE) Demographics Patient NameAISHA EYL Date of Study06/01/2018 Gender Male Visit [id number] Room [id number] Number Date of 1955Referring PhysicianRufina Barriga Age 63 year(s)SonographerIvania Hong Echocardiologist [place] Billy Procedure Type of Study TTE procedure:2DECHO W DOPPLER(CW/PW/COLOR) (Routine) Indications:Acute Chest Pain/ Suspected CAD. Clinical History HGB 10 HCT 29.8 % NSTEMI, CVA, HTN, DM Height: 72 inches Weight: 86.18 kg (190 lbs) BSA: 2.08 m^2 BMI: 25.77 kg/m^2 HR: 64 bpm BP: 133/68 mmHg Summary The left ventricle is chamber size (by PSLAX dimension) is normal (male - LVIDd 4.2-5.8cm) . Normal LV wall thickness. All of the LV segments have low normal contractility . Global LV systolic function lower limits of normal . LVEF by Loya's method of disk assessment is lower limits of normal (50-55%) . The LVEF was measured using Loya's bi-plane method of disk . Normal (cardiac index 2-3 L/min/m2) cardiac output state at rest is noted. Grade 1 diastolic dysfunction (impaired relaxation and low-normal LA pressure). The right ventricular chamber size and systolic function are within normal limits. Unable to estimate peak systolic PA pressure; inadequate TR velocity signal. No pericardial effusion is visualized. Previous Study No prior exam available for comparison. Signature Findings Left Ventricle The left ventricle is chamber size (by PSLAX dimension) is normal (male - LVIDd 4.2-5.8cm) . Normal LV wall thickness. All of the LV segments have low normal contractility . Global LV systolic function lower limits of normal . LVEF by Loya's method of disk assessment is lower limits of normal (50-55%) . The LVEF was measured using Loya's bi-plane method of disk . Normal (cardiac index 2-3 L/min/m2) cardiac output state at rest is noted. Grade 1 diastolic dysfunction (impaired relaxation and low-normal LA pressure). Left AtriumLA size is normal (16-34 ml/m2) . Right VentricleThe right ventricular chamber size and systolic function are within normal limits. Right Atrium RA cavity size is normal . Aortic Valve Mild AoV cusp thickening. AoV cusp mobility is normal . Mitral Valve Mild MV leaflet thickening. Mild mitral annular calcification. Tricuspid ValveUnable to estimate peak systolic PA pressure; inadequate TR velocity signal. Pulmonic Valve PV is not well visualized; function appears normal by Doppler visualized. AortaAortic root size (Sinus of Valsalva diameter) is mildly dilated. 3.8 cm PericardiumNo pericardial effusion is visualized. IVC/SVC/PA/PV/PleuralThe estimated RA pressure by IVC dynamics 0-5mmHg . [facility] Circ SupportIntra Aortic Balloon Pump (IABP) is present. Chambers/Structures Left Atrium LA Volume: 59.2 mlLA Area: 19.15 cm^2 LA Vol. Index: 28 ml/m^2 Left Ventricle LVIDd: 5.18 cm LVEDV:188.89 ml LV Septum Diastolic: 1.04 cm LV PW Diastolic: 1.03 cm LVEDV Loya's:153.75 ml LVESV Loya's:75.7 ml LVEF Loya's: 50.8 %LVEDVI: 74 ml/m^2 LVESVI: 36 ml/m^2 LVOT Diameter: 2.29 cm Right Ventricle TAPSE: 1.61 cm Aorta Ao Root S of Venessa.: 3.79 cm Doppler/Quantitative Measurements Mitral Valve MV Peak E-Wave: 0.75 m/sMV Peak A-Wave: 0.96 m/s E/A Ratio: 0.78 Peak Gradient: 2.23 mmHg Deceleration Time: 235.8 msec MV Dominik. Peak: Tissue Doppler E' Lateral Velocity: 0.1 m/sE/E': 7.62 Aortic Valve Peak Velocity: 1.27 m/sMean Velocity: 0.8 m/s Peak Gradient: 6.43 mmHg Mean Gradient: 2.95 mmHg AV Area (continuity): 3.81 cm^2 AV VTI: 21.53 cm AV DVI: 0.93 LVOT Peak Velocity: 1.3 m/sPeak Gradient: 6.8 mmHg Mean Velocity: 0.72 m/s Mean Gradient: 2.53 mmHg LVOT Diameter: 2.29 cmLVOT VTI: 19.95 cm LVOT Area: 4.12 cm^2LVOT SV:82.13 ml LVOT CO: 5.26 l/min LVOT CI: 2.53 l/min/m^2 Procedure Note Interface, External Ris In - 06/01/2018 4:36 PM CDT Transthoracic Echocardiography Report (TTE) Demographics Patient Name AISHA ELY Date of Study 06/01/2018 Gender Male Visit Number [id number] Race Room Number 2C23 Number Date of 1955 Referring Physician Rufina Barriga Age 63 year(s) Taker Out Ivania Hong Echocardiologist Landon Martin Interpreting Tabatha Mcintosh Physician Procedure Type of Study TTE procedure:2DECHO W DOPPLER(CW/PW/COLOR) (Routine) Indications:Acute Chest Pain/ Suspected CAD. Clinical History HGB 10 HCT 29.8 % NSTEMI, CVA, HTN, DM Height: 72 inches Weight: 86.18 kg (190 lbs) BSA: 2.08 m^2 BMI: 25.77 kg/m^2 HR: 64 bpm BP: 133/68 mmHg Summary The left ventricle is chamber size (by PSLAX dimension) is normal (male - LVIDd 4.2-5.8cm) . Normal LV wall thickness. All of the LV segments have low normal contractility . Global LV systolic function lower limits of normal . LVEF by Loya's method of disk assessment is lower limits of normal (50-55%) . The LVEF was measured using Loya's bi-plane method of disk . Normal (cardiac index 2-3 L/min/m2) cardiac output state at rest is noted. Grade 1 diastolic dysfunction (impaired relaxation and low-normal LA pressure). The right ventricular chamber size and systolic function are within normal limits. Unable to estimate peak systolic PA pressure; inadequate TR velocity signal. No pericardial effusion is visualized. Previous Study No prior exam available for comparison. Signature Findings Left Ventricle The left ventricle is chamber size (by PSLAX dimension) is normal (male - LVIDd 4.2-5.8cm) . Normal LV wall thickness. All of the LV segments have low normal contractility . Global LV systolic function lower limits of normal . LVEF by Loya's method of disk assessment is lower limits of normal (50-55%) . The LVEF was measured using Loya's bi-plane method of disk . Normal (cardiac index 2-3 L/min/m2) cardiac output state at rest is noted. Grade 1 diastolic dysfunction (impaired relaxation and low-normal LA pressure). Left Atrium LA size is normal (16-34 ml/m2) . Right Ventricle The right ventricular chamber size and systolic function are within normal limits. Right Atrium RA cavity size is normal . Aortic Valve Mild AoV cusp thickening. AoV cusp mobility is normal . Mitral Valve Mild MV leaflet thickening. Mild mitral annular calcification. Tricuspid Valve Unable to estimate peak systolic PA pressure; inadequate TR velocity signal. Pulmonic Valve PV is not well visualized; function appears normal by Doppler visualized. Aorta Aortic root size (Sinus of Valsalva diameter) is mildly dilated. 3.8 cm Pericardium No pericardial effusion is visualized. IVC/SVC/PA/PV/Pleural The estimated RA pressure by IVC dynamics 0-5mmHg . [facility] Circ Support Intra Aortic Balloon Pump (IABP) is present. Chambers/Structures Left Atrium LA Volume: 59.2 ml LA Area: 19.15 cm^2 LA Vol. Index: 28 ml/m^2 Left Ventricle LVIDd: 5.18 cm LVEDV:188.89 ml LV Septum Diastolic: 1.04 cm LV PW Diastolic: 1.03 cm LVEDV Loya's:153.75 ml LVESV Loya's:75.7 ml LVEF Loya's: 50.8 % LVEDVI: 74 ml/m^2 LVESVI: 36 ml/m^2 LVOT Diameter: 2.29 cm Right Ventricle TAPSE: 1.61 cm Aorta Ao Root S of Venessa.: 3.79 cm Doppler/Quantitative Measurements Mitral Valve MV Peak E-Wave: 0.75 m/s MV Peak A-Wave: 0.96 m/s E/A Ratio: 0.78 Peak Gradient: 2.23 mmHg Deceleration Time: 235.8 msec MV Dominik. Peak: Tissue Doppler E' Lateral Velocity: 0.1 m/s E/E': 7.62 Aortic Valve Peak Velocity: 1.27 m/s Mean Velocity: 0.8 m/s Peak Gradient: 6.43 mmHg Mean Gradient: 2.95 mmHg AV Area (continuity): 3.81 cm^2 AV VTI: 21.53 cm AV DVI: 0.93 LVOT Peak Velocity: 1.3 m/s Peak Gradient: 6.8 mmHg Mean Velocity: 0.72 m/s Mean Gradient: 2.53 mmHg LVOT Diameter: 2.29 cm LVOT VTI: 19.95 cm LVOT Area: 4.12 cm^2 LVOT SV:82.13 ml LVOT CO: 5.26 l/min LVOT CI: 2.53 l/min/m^2 * Type and screen, automated (06/01/2018 5:47 AM) Component Value Ref Range ABO/RH AUTOMATED (BEAKER) O POSITIVE Ab Scrn NEGATIVE Specimen [place] [address] * B-type Natriuretic Factor (BNP) (06/01/2018 5:47 AM) Component Value Ref Range BNP 230 (H) 0 - 100 pg/mL Specimen Performing Laboratory Blood [address] [address] * Hepatic function panel (06/01/2018 5:47 AM) Component Value Ref Range Protein, Total 6.2 6.0 - 8.3 gm/dL Albumin 4.1 3.5 - 5.0 g/dL Total Bilirubin 0.7 0.2 - 1.2 mg/dL Bilirubin, Direct 0.3 0.1 - 0.5 mg/dL Alkaline Phosphatase 82 40 - 150 U/L AST 15 5 - 34 U/L ALT 13 6 - 55 U/L Specimen Performing Laboratory Blood [address] [address] * Carotid doppler bilateral (06/01/2018 5:31 AM) Component Value Ref Range Ejection Fraction Specimen Performing Laboratory [facility] Impressions Right Impression 1. There is <50% diameter reduction (approximately 23% by 2-D measurement) in the internal carotid artery with a peak velocity of 73/12 cm/sec and heterogeneous plaque. 2. The external carotid artery is within normal limits. 3. The common carotid artery is within normal limits. 4. The vertebral artery flow is antegrade . Left Impression 1. There is <50% diameter reduction (approximately 18% by 2-D measurement) in the internal carotid artery with a peak velocity of 45/15 cm/sec and heterogeneous plaque. 2. The external carotid artery is within normal limits. 3. The common carotid artery is within normal limits. 4. The vertebral artery flow is antegrade . Conclusions Summary Carotid duplex scanning and color flow imaging were performed bilaterally. The arteries were adequately visualized. The bilateral internal carotid arteries had <50% hemodynamically insignificant stenosis (approximately 23% by 2-D measurement on the right, approximately 18% by 2-D measurement on the left) with heterogeneous plaque. The vertebral artery flow was antegrade and consistent with IABP support bilaterally. Signature Velocities are measured in cm/s ; Diameters are measured in cm Carotid Right Measurements +---------+----+----+-----+ + + + !Location !PSV !EDV !Angle!%Stenosis 2D !%Stenosis Doppler !Tortuosity ! +---------+----+----+-----+ + + + !Prox CCA !72.1!15.2!60 ! !! ! +---------+----+----+-----+ + + + !Dist CCA !69.8!28.7!60 ! !! ! +---------+----+----+-----+ + + + !Prox ICA !73.3!12.3!60 ! !! ! +---------+----+----+-----+ + + + !Dist ICA !103 !19.3!60 ! !! ! +---------+----+----+-----+ + + + !Prox ECA !87.4!16.4!60 ! !! ! +---------+----+----+-----+ + + + !Vertebral!55.7!11.1!60 ! !! ! +---------+----+----+-----+ + + + - Additional Measurements:ICAPSV/CCAPSV 1.48.ICAEDV/CCAEDV 1.27. Carotid Left Measurements +---------+----+----+-----+ + + + !Location !PSV !EDV !Angle!%Stenosis 2D !%Stenosis Doppler !Tortuosity ! +---------+----+----+-----+ + + + !Prox CCA !86.8!22.3!60 ! !! ! +---------+----+----+-----+ + + + !Dist CCA !91.5!23.5!60 ! !! ! +---------+----+----+-----+ + + + !Prox ICA !45.1!15.8!60 ! !! ! +---------+----+----+-----+ + + + !Dist ICA !78.1!23.1!56 ! !! ! +---------+----+----+-----+ + + + !Prox ECA !83.3!19.3!60 ! !! ! +---------+----+----+-----+ + + + !Vertebral!27.8!7.86!56 ! !! ! +---------+----+----+-----+ + + + - Additional Measurements:ICAPSV/CCAPSV 0.85.ICAEDV/CCAEDV 1.04. Narrative [facility] - Carotid Duplex Study Demographics Patient Name AISHA ELY Date of Study06/01/2018 [id number] Visit Number [id number] Male Accession Number [id number] of Birth1955 [facility] Room [id number] Physician Dimple Maria Interpreting Harvinder Mayer MD T Mariela Mayer MD Procedure Type of Study: Cerebral: Carotid, CAROTID DOPPLER, BILATERAL. Indications for Study:Pre-Op Heart Bypass Surgery. Patient Status:Routine. Study Location:Portable. Technical Quality:Adequate visualization. Risk Factors History of Disease + + + + !Diagnosis !Date!Comments! + + + + !History/Risk Factors: !06/01/2018!NSTEMI! !!!ACS ! !!!IABP! !!!Previous smoker ! ! !!TIA (03/2017) ! !!!DM! !!!HTN ! !!!HLD ! + + + + Procedure Note Interface, External Ris In - 06/01/2018 5:21 PM CDT [facility] - Carotid Duplex Study Demographics Patient Name AISHA ELY Date of Study 06/01/2018 Age 63 Visit Number [id number] Gender Male Accession Number [id number] Date of 1955 Referring Rufina Barriga Room Number [facility] Physician Taker Out Caridad Maria Interpreting Harvinder Mayer MD T Physician Harvinder Mayer MD Procedure Type of Study: Cerebral: Carotid, CAROTID DOPPLER, BILATERAL. Indications for Study:Pre-Op Heart Bypass Surgery. Patient Status:Routine. Study Location:Portable. Technical Quality:Adequate visualization. Risk Factors History of Disease + + + + !Diagnosis !Date !Comments ! + + + + !History/Risk Factors: !06/01/2018!NSTEMI ! ! ! !ACS ! ! ! !IABP ! ! ! !Previous smoker ! ! ! !TIA (03/2017) ! ! ! !DM ! ! ! !HTN ! ! ! !HLD ! + + + + Impressions Right Impression 1. There is <50% diameter reduction (approximately 23% by 2-D measurement) in the internal carotid artery with a peak velocity of 73/12 cm/sec and heterogeneous plaque. 2. The external carotid artery is within normal limits. 3. The common carotid artery is within normal limits. 4. The vertebral artery flow is antegrade . Left Impression 1. There is <50% diameter reduction (approximately 18% by 2-D measurement) in the internal carotid artery with a peak velocity of 45/15 cm/sec and heterogeneous plaque. 2. The external carotid artery is within normal limits. 3. The common carotid artery is within normal limits. 4. The vertebral artery flow is antegrade . Conclusions Summary Carotid duplex scanning and color flow imaging were performed bilaterally. The arteries were adequately visualized. The bilateral internal carotid arteries had <50% hemodynamically insignificant stenosis (approximately 23% by 2-D measurement on the right, approximately 18% by 2-D measurement on the left) with heterogeneous plaque. The vertebral artery flow was antegrade and consistent with IABP support bilaterally. Signature Velocities are measured in cm/s ; Diameters are measured in cm Carotid Right Measurements +---------+----+----+-----+ + + + !Location !PSV !EDV !Angle!%Stenosis 2D !%Stenosis Doppler !Tortuosity ! +---------+----+----+-----+ + + + !Prox CCA !72.1!15.2!60 ! ! ! ! +---------+----+----+-----+ + + + !Dist CCA !69.8!28.7!60 ! ! ! ! +---------+----+----+-----+ + + + !Prox ICA !73.3!12.3!60 ! ! ! ! +---------+----+----+-----+ + + + !Dist ICA !103 !19.3!60 ! ! ! ! +---------+----+----+-----+ + + + !Prox ECA !87.4!16.4!60 ! ! ! ! +---------+----+----+-----+ + + + !Vertebral!55.7!11.1!60 ! ! ! ! +---------+----+----+-----+ + + + - Additional Measurements:ICAPSV/CCAPSV 1.48.ICAEDV/CCAEDV 1.27. Carotid Left Measurements +---------+----+----+-----+ + + + !Location !PSV !EDV !Angle!%Stenosis 2D !%Stenosis Doppler !Tortuosity ! +---------+----+----+-----+ + + + !Prox CCA !86.8!22.3!60 ! ! ! ! +---------+----+----+-----+ + + + !Dist CCA !91.5!23.5!60 ! ! ! ! +---------+----+----+-----+ + + + !Prox ICA !45.1!15.8!60 ! ! ! ! +---------+----+----+-----+ + + + !Dist ICA !78.1!23.1!56 ! ! ! ! +---------+----+----+-----+ + + + !Prox ECA !83.3!19.3!60 ! ! ! ! +---------+----+----+-----+ + + + !Vertebral!27.8!7.86!56 ! ! ! ! +---------+----+----+-----+ + + + - Additional Measurements:ICAPSV/CCAPSV 0.85.ICAEDV/CCAEDV 1.04. * Insert arterial line (06/01/2018 4:46 AM) Narrative Liliana Holland PA-C 06/01/20184:46 AM Insert Arterial Line Date/Time: 06/01/2018 4:44 AM Performed by: LILIANA HOLLAND Authorized by: LILIANA HOLLAND Consent: The procedure was performed in an emergent situation. Risks and benefits: risks, benefits and alternatives were discussed Consent given by: patient Patient understanding: patient states understanding of the procedure being performed Patient consent: the patient's understanding of the procedure matches consent given Test results: test results available and properly labeled Required items: required blood products, implants, devices, and special equipment available Patient identity confirmed: verbally with patient and arm band Time out: Immediately prior to procedure a "time out" was called to verify the correct patient, procedure, equipment, network diagnostic support specialist and site/side marked as required. Preparation: Patient was prepped and draped in the usual sterile fashion. Indications: hemodynamic monitoring Location: left radial Anesthesia: local infiltration Anesthesia: Local Anesthetic: lidocaine 1% without epinephrine Anesthetic total: 0.5 mL Needle gauge: 20 Seldinger technique: Seldinger technique used Number of attempts: 1 Post-procedure: line sutured and dressing applied Post-procedure CMS: unchanged and normal Patient tolerance: Patient tolerated the procedure well with no immediate complications * Lactic acid, venous, whole blood (06/01/2018 1:00 AM) Component Value Ref Range Lactate, Venous 0.7 0.5 - 2.2 mmol/L Specimen Performing Laboratory Blood [facility] [address] [address] Narrative Effective 02/16/2016: Units/Reference Range Change New: 0.5-2.2 mmol/LPrevious: 5-20 mg/dL after 07/29/2017
[2018-07-30 15:15] VITALS: BP 139/65
--- NOTE | 2018-08-01 15:51 | Operative Report ---
DATE OF PROCEDURE: PREOPERATIVE DIAGNOSES 1. Visually significant cataract to the right eye. 2. Poor dilation of the right eye. POSTOPERATIVE DIAGNOSES 1. Visually significant cataract to the right eye. 2. Poor dilation of the right eye. OPERATION PERFORMED: Phacoemulsification with posterior chamber intraocular lens. ANESTHESIA: MAC. COMPLICATIONS: None. LENS: Chris AUOOTO 21.0 diopter lens. DETAILS OF PROCEDURE: The patient was taken to the operating room where the patient had tetracaine 0.5% drops placed in the eye. The patient's eye was prepped and draped in the usual sterile ophthalmic way. A lid speculum was placed in the eye, and a side-port incision was made. Then, 0.2 mL of 1% lidocaine preservative free was injected in the anterior chamber. Viscoelastic was placed in the anterior chamber, and a keratome was used to make a temporal clear cornea incision. A Malyugin ring was used to dilate the pupil secondary to poor dilation. Once this was centered, a cystotome and Utrata forceps were used to create an anterior capsulorrhexis without any complications. Hydrodissection and hydrodelineation were then performed, and a good fluid wave was noted. The phacoemulsification probe was placed in the eye, and the nucleus was phacoemulsified using the [id number] technique. Irrigation and aspiration handpiece was then used to remove any residual cortical material. Viscoelastic was placed in the capsular bag and an Chris AUOOTO 21.0 diopter lens was placed in the eye without any complications. Irrigation and aspiration handpiece was used to remove any residual viscoelastic material from within the eye. The Malyugin ring was then removed. Miostat was injected in the anterior chamber and the wound was checked to make sure there was no evidence of leakage. Two drops of Vigamox were placed in the eye and once this was done the patient had Maxitrol ointment, a patch and López shield placed on the eye. The patient tolerated the procedure well and was taken to the recovery room in good condition. The patient will be seen in my office tomorrow. Job#: [id number]
== END | disposition home or self-care (01) ==
LOC: OR 11:20
PROVIDERS: ATTEND Ophthalmology
DX: H25.11 Age-related nuclear cataract, right eye (principal); H57.09 Other anomalies of pupillary function; I25.810 Atherosclerosis of coronary artery bypass graft(s) without angina pectoris; I25.2 Old myocardial infarction; E11.9 Type 2 diabetes mellitus without complications; I10 Essential (primary) hypertension; E78.5 Hyperlipidemia, unspecified; Z91.041 Radiographic dye allergy status; Z91.040 Latex allergy status; Z79.82 Long term (current) use of aspirin; Z79.84 Long term (current) use of oral hypoglycemic drugs; Z95.1 Presence of aortocoronary bypass graft; Z86.73 Personal history of transient ischemic attack (TIA), and cerebral infarction without residual deficits
CPT/HCPCS: 36415; 66982; 82948; J2250; V2632

== ENCOUNTER → 2018-08-13 | Day surgery (SDC) | payer BC ==
--- OUTSIDE RECORDS SUMMARY | 2018-08-13 11:41 | XMS REPORT | Clinical Summary ---
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 Active ramipril (ALTACE) 10 MG Take 20 mg by 0 capsule mouth daily. Active metFORMIN (GLUCOPHAGE) Take 1,000 mg 0 1000 MG tablet by mouth every morning. Active metFORMIN (GLUCOPHAGE) Take 500 mg 0 500 MG tablet by mouth every evening. Active glimepiride (AMARYL) 1 MG Take 1 mg by 0 tablet mouth 2 (two) times daily. Active vitamin E 400 UNIT Take 400 0 capsule Units by mouth daily. Active cholecalciferol, vitamin Take 1,000 0 D3, 2,000 unit Cap Units by mouth daily. Active qojasyca-zzmi-rgq-folic Take 1 tablet 0 acid by mouth. (VMXYFJJLTCAS-RBOA-IWCEHM LS-FOLIC ACID) 3,500-18-0.4 unit-mg-mg Chew Active cyanocobalamin (VITAMIN Take 1,000 0 B-12) 1000 MCG tablet mcg by mouth daily. 06/09/2019 Active aspirin 81 MG EC tablet Take 1 tablet 30 tablet 0 (81 mg total) 8 by mouth daily. 06/08/2019 Active atorvastatin (LIPITOR) 80 Take 1 tablet 30 tablet 0 MG tablet (80 mg total) 8 by mouth nightly. 06/10/2019 Active furosemide (LASIX) 20 MG Take 1 tablet 30 tablet 0 tablet (20 mg total) 8 by mouth daily. 06/09/2019 Active metoprolol (LOPRESSOR) 25 Take 1 tablet 60 tablet 0 MG tablet (25 mg total) 8 by mouth 2 (two) times daily. 06/08/2018 Discontinued clopidogrel (PLAVIX) 75 Take 75 mg by 0 mg tablet mouth daily. 06/08/2018 Discontinued amLODIPine (NORVASC) 5 MG Take 10 mg by 0 tablet mouth daily. 06/08/2018 Discontinued atorvastatin (LIPITOR) 40 Take 40 mg by 0 MG tablet mouth every evening. 06/08/2018 Discontinued aspirin 325 MG tablet Take 200 mg 0 by mouth daily. 06/13/2018 acetaminophen-codeine Take 1 tablet 20 tablet 0 (TYLENOL #3) 300-30 mg by mouth 8 per tablet every 6 (six) hours as needed for up to 5 days. Max Daily Amount: 4 tablets 06/22/2018 clobetasol (TEMOVATE) Apply 30 g 0 0.05 % ointment topically 2 8 (two) times daily as needed for up to 14 days Neck/abdomen/ thighs: itchiness/red ness. Avoid thoracotomy site.. 06/22/2018 hydrocortisone 1 % cream Apply 30 g 0 topically 2 8 (two) times daily as needed for up to 14 days Apply to groin to the red itchy spots.. 06/09/2018 Discontinued metoprolol (LOPRESSOR) 25 Take 0.5 30 tablet 0 201 MG tablet tablets (12.5 8 mg total) by mouth 2 (two) times daily. 06/16/2018 clindamycin (CLEOCIN T) 1 Apply 60 mL 0 % lotion topically 2 8 (two) times daily for 7 days Apply to medial thighs. 06/09/2018 Discontinued metoprolol (LOPRESSOR) 25 Take 1 tablet 30 tablet 0 MG tablet (25 mg total) 8 by mouth 2 (two) times daily. Active Problems Problem Noted Date On intra-aortic balloon pump assist 06/01/2018 H/O diabetic neuropathy 06/01/2018 Respiratory insufficiency 06/01/2018 Hyperglycemia due to type 2 diabetes mellitus 06/01/2018 NSTEMI (non-ST elevated myocardial infarction) 05/31/2018 Coronary arteriosclerosis due to lipid rich plaque Type 2 diabetes mellitus with hyperglycemia, without long-term current use of insulin Encounters Care Team Description Date Type Specialty Ita Britton MD Post-operative state (Primary Dx) 06/13/2018 Office Visit Cardiology Ita Britton MD BYPASS,[place]TO CORONARY ELIF/SVG 06/03/2018 Surgery Toby Mcclellan MD 06/03/2018 Anesthesia Event 06/01/2018 Orders Only General Internal Medicine Rufina Barriga MD Hasan, Christian Dasilva MD NSTEMI (non-ST elevated myocardial infarction) (HCC) (Primary Dx); On intra-aortic balloon pump assist; Coronary arteriosclerosis due to lipid rich plaque; Type 2 diabetes mellitus with hyperglycemia, without long-term current use of insulin (HCC); Respiratory insufficiency 05/31/2018 Hospital Cardiology - Encounter 06/09/2018 after 08/12/2017 Family History Medical History Relation Name Comments Heart failure Father Relation Name Status Comments Father Mother Alive Social History Date Tobacco Use Types Packs/Day Years Used Quit: 02/2018 Former Smoker Cigarettes 1 40 Smokeless Tobacco: Never Used Tobacco Cessation: Counseling Given: Yes Alcohol Use Drinks/Week oz/Week Comments Yes 6 Cans of 3.6 6 beers per week beer Sex Assigned at Date Recorded Not on file Industry Job Start Date Occupation Not on file Not on file Not on file Travel End Travel History Travel Start No recent travel history available. Last Filed Vital Signs Time Taken Vital Sign Reading 06/13/2018 8:55 AM CDT Blood Pressure 104/56 06/13/2018 8:55 AM CDT Pulse 71 06/13/2018 8:55 AM CDT Temperature 37 C (98.6 F) 06/13/2018 8:55 AM CDT Respiratory Rate 18 06/13/2018 8:55 AM CDT Oxygen Saturation 98% 06/04/2018 8:45 AM CDT Inhaled Oxygen 40% Concentration 06/13/2018 8:55 AM CDT Weight 90.7 kg (200 lb) 06/13/2018 8:55 AM CDT Height 182.9 cm (6') 06/13/2018 8:55 AM CDT Body Mass Index 27.12 Plan of Treatment Not on file Procedures Comments Procedure Name Priority Date/Time Associated Diagnosis RHYTHM STRIP - SCAN 06/11/2018 10:20 AM CDT POCT-GLUCOSE METER Routine 06/09/2018 12:52 PM CDT POCT-GLUCOSE METER Routine 06/09/2018 7:10 AM CDT BASIC METABOLIC PANEL (7) Routine 06/09/2018 5:11 AM CDT POCT-GLUCOSE METER Routine 06/08/2018 10:11 PM CDT POCT-GLUCOSE METER Routine 06/08/2018 6:04 PM CDT POCT-GLUCOSE METER Routine 06/08/2018 12:21 PM CDT POCT-GLUCOSE METER Routine 06/08/2018 7:14 AM CDT CBC W/PLT COUNT & AUTO Routine 06/08/2018 DIFFERENTIAL 5:23 AM CDT BASIC METABOLIC PANEL (7) Routine 06/08/2018 5:23 AM CDT CBC W/PLT COUNT & AUTO Routine 06/08/2018 DIFFERENTIAL 5:23 AM CDT POCT-GLUCOSE METER Routine 06/07/2018 11:45 PM CDT POCT-GLUCOSE METER Routine 06/07/2018 9:23 PM CDT POCT-GLUCOSE METER Routine 06/07/2018 5:54 PM CDT US TESTICULAR (SCROTUM) Routine 06/07/2018 3:58 PM CDT POCT-GLUCOSE METER Routine 06/07/2018 11:42 AM CDT POCT-GLUCOSE METER Routine 06/07/2018 7:36 AM CDT XR CHEST 1 VIEW Routine 06/07/2018 PORTABLE/BEDSIDE 5:06 AM CDT CBC W/PLT COUNT & AUTO Routine 06/07/2018 DIFFERENTIAL 3:51 AM CDT BASIC METABOLIC PANEL (7) Routine 06/07/2018 3:51 AM CDT CBC W/PLT COUNT & AUTO Routine 06/07/2018 DIFFERENTIAL 3:51 AM CDT POCT-GLUCOSE METER Routine 06/06/2018 8:39 PM CDT POCT-GLUCOSE METER Routine 06/06/2018 7:01 PM CDT TRANSFUSION SERVICE 06/06/2018 REPORT - SCAN 6:00 PM CDT POCT-GLUCOSE METER Routine 06/06/2018 12:41 PM CDT XR CHEST 1 VIEW STAT 06/06/2018 PORTABLE/BEDSIDE 10:46 AM CDT POCT-GLUCOSE METER Routine 06/06/2018 8:18 AM CDT CBC (HEMOGRAM ONLY) Routine 06/06/2018 4:19 AM CDT BASIC METABOLIC PANEL (7) Routine 06/06/2018 4:19 AM CDT MAGNESIUM Routine 06/06/2018 4:19 AM CDT PHOSPHORUS Routine 06/06/2018 4:19 AM CDT PREPARE LEUKO-REDUCED RBC Routine 06/05/2018 11:54 PM CDT POCT-GLUCOSE METER Routine 06/05/2018 8:42 PM CDT TRANSFUSION SERVICE 06/05/2018 REPORT - SCAN 6:03 PM CDT POCT-GLUCOSE METER Routine 06/05/2018 5:11 PM CDT POCT-GLUCOSE METER Routine 06/05/2018 1:09 PM CDT POCT-GLUCOSE METER Routine 06/05/2018 9:10 AM CDT XR CHEST 1 VIEW STAT 06/05/2018 PORTABLE/BEDSIDE 6:34 AM CDT CBC (HEMOGRAM ONLY) Routine 06/05/2018 3:38 AM CDT PHOSPHORUS Routine 06/05/2018 3:38 AM CDT MAGNESIUM Routine 06/05/2018 3:38 AM CDT BASIC METABOLIC PANEL (7) Routine 06/05/2018 3:38 AM CDT TROPONIN I Routine 06/05/2018 1:06 AM CDT CREATINE KINASE (CK), STAT 06/05/2018 TOTAL AND MB 1:06 AM CDT POCT-GLUCOSE METER Routine 06/05/2018 1:04 AM CDT PREPARE LEUKO-REDUCED RBC Routine 06/04/2018 11:54 PM CDT PREPARE LEUKO-REDUCED RBC Routine 06/04/2018 11:54 PM CDT POCT-GLUCOSE METER Routine 06/04/2018 11:13 PM CDT POCT-GLUCOSE METER Routine 06/04/2018 9:08 PM CDT CBC (HEMOGRAM ONLY) Routine 06/04/2018 8:05 PM CDT POCT-GLUCOSE METER Routine 06/04/2018 7:56 PM CDT POCT-GLUCOSE METER Routine 06/04/2018 6:14 PM CDT TRANSFUSION SERVICE 06/04/2018 REPORT - SCAN 6:03 PM CDT POCT-GLUCOSE METER Routine 06/04/2018 4:16 PM CDT CBC (HEMOGRAM ONLY) Routine 06/04/2018 4:16 PM CDT TROPONIN I Routine 06/04/2018 4:16 PM CDT CREATINE KINASE (CK), STAT 06/04/2018 TOTAL AND MB 4:16 PM CDT POCT-GLUCOSE METER Routine 06/04/2018 3:04 PM CDT POCT-GLUCOSE METER Routine 06/04/2018 12:39 PM CDT TRANSFUSE LEUKO-REDUCED Routine 06/04/2018 RED BLOOD CELLS 11:05 AM CDT POCT-GLUCOSE METER Routine 06/04/2018 9:00 AM CDT GLUCOSE-STAT LAB STAT 06/04/2018 7:37 AM CDT BLOOD GAS, ARTERIAL STAT 06/04/2018 7:37 AM CDT HGB/HCT (H&H) - STAT LAB Routine 06/04/2018 6:11 AM CDT GLUCOSE-STAT LAB Routine 06/04/2018 6:11 AM CDT OXYGEN SATURATION, Routine 06/04/2018 MEASURED 6:11 AM CDT HGB/HCT (H&H) - STAT LAB Routine 06/04/2018 4:27 AM CDT GLUCOSE-STAT LAB Routine 06/04/2018 4:27 AM CDT POTASSIUM-STAT LAB Routine 06/04/2018 4:27 AM CDT SODIUM NA-STAT LAB Routine 06/04/2018 4:27 AM CDT BLOOD GAS, ARTERIAL Routine 06/04/2018 4:27 AM CDT LACTIC ACID, ARTERIAL, Routine 06/04/2018 WHOLE BLOOD 4:27 AM CDT CALCIUM, IONIZED Routine 06/04/2018 4:27 AM CDT RRL CRITICAL LABS Routine 06/04/2018 (ABG,NA,K,H&H,GLUCOSE) 4:27 AM CDT PHOSPHORUS Routine 06/04/2018 4:27 AM CDT MAGNESIUM Routine 06/04/2018 4:27 AM CDT BASIC METABOLIC PANEL (7) Routine 06/04/2018 4:27 AM CDT PLATELET AGGREGATION: Routine 06/04/2018 FUNCTION SCREEN 4:27 AM CDT TROPONIN I Routine 06/04/2018 4:27 AM CDT CREATINE KINASE (CK), STAT 06/04/2018 TOTAL AND MB 4:27 AM CDT CBC (HEMOGRAM ONLY) Routine 06/04/2018 4:27 AM CDT POCT-GLUCOSE METER Routine 06/04/2018 2:04 AM CDT XR CHEST 1 VIEW STAT 06/04/2018 PORTABLE/BEDSIDE 1:51 AM CDT POCT-GLUCOSE METER Routine 06/04/2018 12:52 AM CDT TROPONIN I Routine 06/04/2018 12:47 AM CDT CREATINE KINASE (CK), STAT 06/04/2018 TOTAL AND MB 12:47 AM CDT HGB/HCT (H&H) - STAT LAB Routine 06/03/2018 11:29 PM CDT GLUCOSE-STAT LAB Routine 06/03/2018 11:29 PM CDT TRANSFUSE LEUKO-REDUCED Routine 06/03/2018 RED BLOOD CELLS 11:08 PM CDT CALCIUM, IONIZED Routine 06/03/2018 9:53 PM CDT GLUCOSE-STAT LAB Routine 06/03/2018 9:53 PM CDT HGB/HCT (H&H) - STAT LAB Routine 06/03/2018 9:53 PM CDT POTASSIUM-STAT LAB Routine 06/03/2018 9:53 PM CDT BLOOD GAS, ARTERIAL PAWAN 06/03/2018 9:53 PM CDT POCT-GLUCOSE METER Routine 06/03/2018 6:50 PM CDT POCT-GLUCOSE METER Routine 06/03/2018 5:55 PM CDT XR CHEST 1 VIEW Routine 06/03/2018 PORTABLE/BEDSIDE 4:46 PM CDT CALCIUM, IONIZED STAT 06/03/2018 4:41 PM CDT LACTIC ACID, ARTERIAL, STAT 06/03/2018 WHOLE BLOOD 4:41 PM CDT PT/APTT STAT 06/03/2018 4:41 PM CDT CBC W/PLT COUNT & AUTO STAT 06/03/2018 DIFFERENTIAL 4:37 PM CDT CBC W/PLT COUNT & AUTO STAT 06/03/2018 DIFFERENTIAL 4:37 PM CDT BASIC METABOLIC PANEL (7) STAT 06/03/2018 4:36 PM CDT PHOSPHORUS STAT 06/03/2018 4:36 PM CDT MAGNESIUM STAT 06/03/2018 4:36 PM CDT BLOOD GAS, ARTERIAL STAT 06/03/2018 4:36 PM CDT TROPONIN I Routine 06/03/2018 4:36 PM CDT CREATINE KINASE (CK), STAT 06/03/2018 TOTAL AND MB 4:36 PM CDT HGB/HCT (H&H) - STAT LAB STAT 06/03/2018 3:52 PM CDT GLUCOSE-STAT LAB STAT 06/03/2018 3:52 PM CDT POTASSIUM-STAT LAB STAT 06/03/2018 3:52 PM CDT SODIUM NA-STAT LAB STAT 06/03/2018 3:52 PM CDT BLOOD GAS, ARTERIAL STAT 06/03/2018 3:52 PM CDT RRL CRITICAL LABS STAT 06/03/2018 (ABG,NA,K,H&H,GLUCOSE) 3:52 PM CDT HGB/HCT (H&H) - STAT LAB STAT 06/03/2018 3:27 PM CDT GLUCOSE-STAT LAB STAT 06/03/2018 3:27 PM CDT POTASSIUM-STAT LAB STAT 06/03/2018 3:27 PM CDT SODIUM NA-STAT LAB STAT 06/03/2018 3:27 PM CDT BLOOD GAS, ARTERIAL STAT 06/03/2018 3:27 PM CDT CALCIUM, IONIZED STAT 06/03/2018 3:27 PM CDT RRL CRITICAL LABS STAT 06/03/2018 (ABG,NA,K,H&H,GLUCOSE) 3:27 PM CDT ANESTHESIA ASHLEY Routine 06/03/2018 2:45 PM CDT POCT-ACT Routine 06/03/2018 2:36 PM CDT HGB/HCT (H&H) - STAT LAB STAT 06/03/2018 2:32 PM CDT GLUCOSE-STAT LAB STAT 06/03/2018 2:32 PM CDT POTASSIUM-STAT LAB STAT 06/03/2018 2:32 PM CDT SODIUM NA-STAT LAB STAT 06/03/2018 2:32 PM CDT BLOOD GAS, ARTERIAL STAT 06/03/2018 2:32 PM CDT THROMBOELASTOGRAPH (TEG) STAT 06/03/2018 2:32 PM CDT FIBRINOGEN STAT 06/03/2018 2:32 PM CDT APTT STAT 06/03/2018 2:32 PM CDT PROTHROMBIN TIME/INR STAT 06/03/2018 2:32 PM CDT CALCIUM, IONIZED STAT 06/03/2018 2:32 PM CDT RRL CRITICAL LABS STAT 06/03/2018 (ABG,NA,K,H&H,GLUCOSE) 2:32 PM CDT PLATELET COUNT Routine 06/03/2018 2:32 PM CDT POCT-ACT Routine 06/03/2018 2:03 PM CDT HGB/HCT (H&H) - STAT LAB STAT 06/03/2018 1:59 PM CDT GLUCOSE-STAT LAB STAT 06/03/2018 1:59 PM CDT POTASSIUM-STAT LAB STAT 06/03/2018 1:59 PM CDT SODIUM NA-STAT LAB STAT 06/03/2018 1:59 PM CDT BLOOD GAS, ARTERIAL STAT 06/03/2018 1:59 PM CDT RRL CRITICAL LABS STAT 06/03/2018 (ABG,NA,K,H&H,GLUCOSE) 1:59 PM CDT POCT-ACT Routine 06/03/2018 1:37 PM CDT HGB/HCT (H&H) - STAT LAB STAT 06/03/2018 1:30 PM CDT GLUCOSE-STAT LAB STAT 06/03/2018 1:30 PM CDT POTASSIUM-STAT LAB STAT 06/03/2018 1:30 PM CDT SODIUM NA-STAT LAB STAT 06/03/2018 1:30 PM CDT BLOOD GAS, ARTERIAL STAT 06/03/2018 1:30 PM CDT RRL CRITICAL LABS STAT 06/03/2018 (ABG,NA,K,H&H,GLUCOSE) 1:30 PM CDT POCT-ACT Routine 06/03/2018 1:10 PM CDT HGB/HCT (H&H) - STAT LAB STAT 06/03/2018 1:03 PM CDT GLUCOSE-STAT LAB STAT 06/03/2018 1:03 PM CDT POTASSIUM-STAT LAB STAT 06/03/2018 1:03 PM CDT SODIUM NA-STAT LAB STAT 06/03/2018 1:03 PM CDT BLOOD GAS, ARTERIAL STAT 06/03/2018 1:03 PM CDT RRL CRITICAL LABS STAT 06/03/2018 (ABG,NA,K,H&H,GLUCOSE) 1:03 PM CDT TRANSFUSE LEUKO-REDUCED Routine 06/03/2018 RED BLOOD CELLS 12:55 PM CDT POCT-ACT Routine 06/03/2018 12:46 PM CDT HGB/HCT (H&H) - STAT LAB STAT 06/03/2018 12:43 PM CDT GLUCOSE-STAT LAB STAT 06/03/2018 12:43 PM CDT POTASSIUM-STAT LAB STAT 06/03/2018 12:43 PM CDT SODIUM NA-STAT LAB STAT 06/03/2018 12:43 PM CDT BLOOD GAS, ARTERIAL STAT 06/03/2018 12:43 PM CDT RRL CRITICAL LABS STAT 06/03/2018 (ABG,NA,K,H&H,GLUCOSE) 12:43 PM CDT POCT-ACT Routine 06/03/2018 12:01 PM CDT HGB/HCT (H&H) - STAT LAB STAT 06/03/2018 11:00 AM CDT GLUCOSE-STAT LAB STAT 06/03/2018 11:00 AM CDT POTASSIUM-STAT LAB STAT 06/03/2018 11:00 AM CDT SODIUM NA-STAT LAB STAT 06/03/2018 11:00 AM CDT BLOOD GAS, ARTERIAL STAT 06/03/2018 11:00 AM CDT FILTER IONIZED CALCIUM STAT 06/03/2018 11:00 AM CDT RRL CRITICAL LABS STAT 06/03/2018 (ABG,NA,K,H&H,GLUCOSE) 11:00 AM CDT HGB/HCT (H&H) - STAT LAB STAT 06/03/2018 10:07 AM CDT GLUCOSE-STAT LAB STAT 06/03/2018 10:07 AM CDT POTASSIUM-STAT LAB STAT 06/03/2018 10:07 AM CDT SODIUM NA-STAT LAB STAT 06/03/2018 10:07 AM CDT BLOOD GAS, ARTERIAL STAT 06/03/2018 10:07 AM CDT CALCIUM, IONIZED STAT 06/03/2018 10:07 AM CDT RRL CRITICAL LABS STAT 06/03/2018 (ABG,NA,K,H&H,GLUCOSE) 10:07 AM CDT ENDOSCOPIC HARVEST,VEIN 06/03/2018 Coronary artery disease 9:00 AM CDT with angina pectoris, unspecified vessel or lesion type, unspecified whether andreafski or transplanted heart (HCC) BYPASS,[place]TO CORONARY 06/03/2018 Coronary artery disease ELIF/SVG 9:00 AM CDT with angina pectoris, unspecified vessel or lesion type, unspecified whether andreafski or transplanted heart (HCC) PREPARE PLASMA Routine 06/03/2018 8:53 AM CDT POCT-GLUCOSE METER Routine 06/03/2018 7:50 AM CDT CBC W/PLT COUNT & AUTO Routine 06/03/2018 DIFFERENTIAL 5:19 AM CDT PT/APTT Routine 06/03/2018 5:19 AM CDT PLATELET AGGREGATION: Routine 06/03/2018 FUNCTION SCREEN 5:19 AM CDT MAGNESIUM Routine 06/03/2018 5:19 AM CDT BASIC METABOLIC PANEL (7) Routine 06/03/2018 5:19 AM CDT CBC W/PLT COUNT & AUTO Routine 06/03/2018 DIFFERENTIAL 5:19 AM CDT BLOOD GAS, ARTERIAL Routine 06/03/2018 5:19 AM CDT TROPONIN I Routine 06/03/2018 5:19 AM CDT CREATINE KINASE (CK), STAT 06/03/2018 TOTAL AND MB 5:19 AM CDT CBC (HEMOGRAM ONLY) Routine 06/03/2018 5:19 AM CDT POCT-GLUCOSE METER Routine 06/02/2018 6:38 PM CDT TRANSFUSION SERVICE 06/02/2018 REPORT - SCAN 6:01 PM CDT PT/APTT Routine 06/02/2018 5:43 PM CDT URINALYSIS W/ MICROSCOPIC Routine 06/02/2018 3:13 PM CDT TSH Routine 06/02/2018 3:13 PM CDT TROPONIN I Routine 06/02/2018 3:13 PM CDT CREATINE KINASE (CK), STAT 06/02/2018 TOTAL AND MB 3:13 PM CDT POCT-GLUCOSE METER Routine 06/02/2018 2:47 PM CDT POCT-GLUCOSE METER Routine 06/02/2018 10:42 AM CDT APTT Routine 06/02/2018 10:37 AM CDT POCT-GLUCOSE METER Routine 06/02/2018 7:43 AM CDT TROPONIN I Routine 06/02/2018 7:40 AM CDT CREATINE KINASE (CK), STAT 06/02/2018 TOTAL AND MB 7:40 AM CDT ECG 12-LEAD Routine 06/02/2018 5:11 AM CDT CBC W/PLT COUNT & AUTO Routine 06/02/2018 DIFFERENTIAL 5:03 AM CDT FERRITIN Routine 06/02/2018 5:03 AM CDT TRANSFERRIN Routine 06/02/2018 5:03 AM CDT IRON, TIBC, % SAT. Routine 06/02/2018 (WITHOUT FERRITIN) 5:03 AM CDT IRON, SERUM Routine 06/02/2018 5:03 AM CDT PLATELET AGGREGATION: AP Routine 06/02/2018 FUNCTION SCREEN 5:03 AM CDT MAGNESIUM Routine 06/02/2018 5:03 AM CDT BASIC METABOLIC PANEL (7) Routine 06/02/2018 5:03 AM CDT CBC W/PLT COUNT & AUTO Routine 06/02/2018 DIFFERENTIAL 5:03 AM CDT TROPONIN I Routine 06/02/2018 5:03 AM CDT CREATINE KINASE (CK), STAT 06/02/2018 TOTAL AND MB 5:03 AM CDT XR CHEST 1 VIEW Routine 06/02/2018 PORTABLE/BEDSIDE 4:35 AM CDT PT/APTT Routine 06/02/2018 1:01 AM CDT POCT-GLUCOSE METER Routine 06/01/2018 10:21 PM CDT POCT-GLUCOSE METER Routine 06/01/2018 6:34 PM CDT ECG 12-LEAD Routine 06/01/2018 6:29 PM CDT PT/APTT Routine 06/01/2018 6:23 PM CDT ECHOCARDIOGRAM REPORT - 06/01/2018 SCAN 5:26 PM CDT CREATINE KINASE (CK), STAT 06/01/2018 TOTAL AND MB 2:55 PM CDT PT/APTT Routine 06/01/2018 11:57 AM CDT HEMOGLOBIN A1C Routine 06/01/2018 11:57 AM CDT POCT-GLUCOSE METER Routine 06/01/2018 11:44 AM CDT 2D ECHO W/ DOPPLER Routine 06/01/2018 (CW/PW/COLOR) 10:07 AM CDT CREATINE KINASE (CK), STAT 06/01/2018 TOTAL AND MB 7:55 AM CDT TROPONIN I STAT 06/01/2018 7:55 AM CDT ECG 12-LEAD Routine 06/01/2018 6:16 AM CDT ECG 12-LEAD Routine 06/01/2018 6:16 AM CDT Procedure Note - Interface, External Ris In - 06/01/2018 6:28 AM CDT Ventricula r Rate 62 BPM Atrial Rate 62 BPM P-R Interval 182 ms QRS Duration 104 ms Q-T Interval 446 ms QTC Calculatio n(Bazett) 452 ms P [place] 55 degrees R [place] 8 degrees T [place] 87 degrees Normal sinus rhythm ST & T wave abnormalit y, consider lateral ischemia Abnormal ECG No previous ECGs available TYPE AND SCREEN, Routine 06/01/2018 AUTOMATED 5:47 AM CDT B-TYPE NATRIURETIC FACTOR Routine 06/01/2018 (BNP) 5:47 AM CDT HEPATIC FUNCTION PANEL Routine 06/01/2018 5:47 AM CDT APTT Routine 06/01/2018 5:47 AM CDT PLATELET COUNT Routine 06/01/2018 5:47 AM CDT CBC (HEMOGRAM ONLY) Routine 06/01/2018 5:47 AM CDT PLATELET AGGREGATION: STAT 06/01/2018 FUNCTION SCREEN 5:47 AM CDT CAROTID DOPPLER BILATERAL Routine 06/01/2018 5:31 AM CDT XR CHEST 1 VIEW Routine 06/01/2018 PORTABLE/BEDSIDE 5:06 AM CDT [place] INSERT Routine 06/01/2018 NSTEMI (non-ST elevated CATH,ART,PERCUT,SHORTTERM 4:46 AM CDT myocardial infarction) (HCC) CBC W/PLT COUNT & AUTO Routine 06/01/2018 DIFFERENTIAL 1:00 AM CDT PROTHROMBIN TIME/INR Routine 06/01/2018 1:00 AM CDT MAGNESIUM Routine 06/01/2018 1:00 AM CDT BASIC METABOLIC PANEL (7) Routine 06/01/2018 1:00 AM CDT CBC W/PLT COUNT & AUTO Routine 06/01/2018 DIFFERENTIAL 1:00 AM CDT FIBRINOGEN Routine 06/01/2018 1:00 AM CDT APTT Routine 06/01/2018 1:00 AM CDT CREATINE KINASE (CK), STAT 06/01/2018 TOTAL AND MB 1:00 AM CDT CREATINE KINASE (CK), STAT 06/01/2018 TOTAL AND MB 1:00 AM CDT LACTIC ACID, VENOUS, Routine 06/01/2018 WHOLE BLOOD 1:00 AM CDT TROPONIN I STAT 06/01/2018 1:00 AM CDT XR CHEST 1 VIEW STAT 05/31/2018 PORTABLE/BEDSIDE 11:40 PM CDT CBC W/PLT COUNT & AUTO STAT 05/31/2018 DIFFERENTIAL 11:23 PM CDT CALCIUM, IONIZED STAT 05/31/2018 11:23 PM CDT CBC W/PLT COUNT & AUTO STAT 05/31/2018 DIFFERENTIAL 11:23 PM CDT FIBRINOGEN Routine 05/31/2018 11:23 PM CDT APTT Routine 05/31/2018 11:23 PM CDT PROTHROMBIN TIME/INR Routine 05/31/2018 11:23 PM CDT after 08/12/2017 Results * RHYTHM STRIP - SCAN (06/11/2018 10:20 AM CDT) Narrative Performed At * POC-Glucose meter (06/09/2018 12:52 PM CDT) Only the most recent of 40 results within the time period is included. POC-Glucose Meter 197 (H)Comment: TESTED AT 70 - 110 mg/dL [facility] [id number] [facility] [id number] Specimen Blood Performing Organization Address City/State/Zipcode Phone Number [address] [address] MEDICAL CENTER * Basic Metabolic Panel (06/09/2018 5:11 AM CDT) Only the most recent of 10 results within the time period is included. Sodium 138 136 - 145 meq/L [facility] Potassium 3.8 3.5 - 5.1 meq/L [facility] Chloride 104 98 - 107 meq/L [facility] CO2 26 22 - 29 meq/L [facility] BUN 16 7 - 21 mg/dL [facility] Creatinine 1.19 0.57 - 1.25 mg/dL [facility] Glucose 175 (H) 70 - 105 mg/dL [facility] Calcium 8.5 8.4 - 10.2 mg/dL [facility] EGFR 62Comment: ESTIMATED GFR IS mL/min/1.73 sq m [facility] NOT ACCURATE CREATININE [facility] CLEARANCE IN PREDICTING GLOMERULAR FILTRATION RATE. ESTIMATED GFR IS NOT APPLICABLE FOR DIALYSIS PATIENTS. Specimen Blood Performing Organization Address City/State/Zipcode Phone Number [facility] [address] [place] [address] MEDICAL CENTER * CBC with platelet count + automated diff (06/08/2018 5:23 AM CDT) Only the most recent of 7 results within the time period is included. WBC 9.4 3.5 - 10.5 K/L [facility] RBC 2.88 (L) 4.63 - 6.08 M/L [facility] Hemoglobin 8.6 (L) 13.7 - 17.5 GM/DL [facility] Hematocrit 27.1 (L) 40.1 - 51.0 % [facility] MCV 94.1 (H) 79.0 - 92.2 fL [facility] MCH 29.9 25.7 - 32.2 pg [facility] MCHC 31.7 (L) 32.3 - 36.5 GM/DL [facility] RDW 13.7 11.6 - 14.4 % [facility] Platelets 302 150 - 450 K/CU MM [facility] MPV 10.6 9.4 - 12.4 fL [facility] nRBC 0 0 - 0 /100 WBC [facility] % Neutros 66 % [facility] % Lymphs 15 % [facility] % Monos 12 % [facility] % Eos 6 % [facility] % Baso 0 % [facility] # Neutros 6.24 (H) 1.78 - 5.38 K/L [facility] # Lymphs 1.39 1.32 - 3.57 K/L [facility] # Monos 1.12 (H) 0.30 - 0.82 K/L [facility] # Eos 0.55 (H) 0.04 - 0.54 K/L [facility] # Baso 0.02 0.01 - 0.08 K/L [facility] Immature 1 0 - 1 % [facility] Spec[facility] Blood - Arm, Left Performing Organization Address City/State/Zipcode Phone Number [facility] [address] [place] [address] MEDICAL [facility]ENTER * US testicular (scrotum) (06/07/2018 3:58 PM CDT) Narrative Performed At FINAL REPORT [employer] TECHNIQUE: Grayscale, color Doppler, and spectral Doppler [...] MD Report Verified Date/Time:06/07/2018 16:12:07 Reading Location: [address] Ultrasound Reading Room Procedure Note Interface, [...] Report Verified Date/Time: 06/07/2018 16:12:07 Reading Location: [address] Ultrasound Reading Room Performing Organization Address City/State/Zipcode Phone Number [employer] * XR chest 1 view portable / bedside (06/07/2018 5:06 AM CDT) Only the most recent of 8 results within the time period is included. Narrative Performed At FINAL REPORT [employer] INDICATION: s/p ACB TECHNIQUE: Chest radiograph, single [...] MD Report Verified Date/Time:06/07/2018 08:22:24 Reading Location: [facility] Women Procedure Note Interface, External Ris In [...] Report Verified Date/Time: 06/07/2018 08:22:24 Reading Location: [facility] Women Performing Organization Address City/State/Zipcode Phone Number [facility] * TRANSFUSION SERVICE REPORT - SCAN (06/06/2018 6:00 PM CDT) Only the most recent of 4 results within the time period is included. Narrative Performed At * CBC (hemogram only) (06/06/2018 4:19 AM CDT) Only the most recent of 7 results within the time period is included. WBC 10.4 3.5 - 10.5 K/L [facility] RBC 3.12 (L) 4.63 - 6.08 M/L [facility] Hemoglobin 9.5 (L) 13.7 - 17.5 GM/DL [facility] Hematocrit 29.3 (L) 40.1 - 51.0 % [facility] MCV 93.9 (H) 79.0 - 92.2 fL [facility] MCH 30.4 25.7 - 32.2 pg [facility] MCHC 32.4 32.3 - 36.5 GM/DL [facility] RDW 14.4 11.6 - 14.4 % [facility] Platelets 186 150 - 450 K/CU MM [facility] MPV 11.1 9.4 - 12.4 fL [facility] nRBC 0 0 - 0 /100 WBC [facility] Specimen Blood - Arm, Left Performing Organization Address City/[facility] Phone Number [address] [address] [facility] * Phosphorus (06/06/2018 4:19 AM CDT) Only the most recent of 4 results within the time period is included. Phosphorus 2.3 2.3 - 4.7 mg/dL [facility] Specimen Blood - Arm, Left Narrative Performed At Check Serum Magnesium level 2 hours after IV magnesium replacement. [facility] Check Serum Phosphorus level 4 hours after IV phosphorus replacement or 8 hours [facility] after PO replacement completed. Performing Organization Address City/[facility] Phone Number [address] [address] [facility] * Magnesium (06/06/2018 4:19 AM CDT) Only the most recent of 7 results within the time period is included. Magnesium 1.9 1.6 - 2.6 mg/dL [facility] Specimen Blood - Arm, Left Narrative Performed At Check Serum Magnesium level 2 hours after IV magnesium replacement. [facility] Check Serum Phosphorus level 4 hours after IV phosphorus replacement or 8 hours [facility] after PO replacement completed. Performing Organization Address City/[facility] Phone Number [address] [address] [facility] * Prepare Leuko-Red RBC (06/05/2018 11:54 PM CDT) Only the most recent of 3 results within the time period is included. CROSSMATCH COMPATIBLE SAFETRACE TX Unit ABO O Pos SAFETRACE TX UNIT NUMBER [id number] [place] Status TRANSFUSED [place]AF[place]ACE [place] Blood Bank Product RED BLOOD CELLS [place]AF[place] PRODUCT CODE [id number] [place] Specimen Other Performing Organization Address City/[facility]/Zipcode Phone Number [place] * Troponin I (06/05/2018 1:06 AM CDT) Only the most recent of 11 results within the time period is included. Troponin I 1.05 (HH) 0.00 - 0.03 ng/mL [facility] Specimen Blood - Line, Arterial Narrative Performed At Troponin I (TnI) levels must be interpreted in the context of the presenting [facility] symptoms and the clinical findings. Elevated TnI levels indicate myocardial [facility] damage, but are not specific for ischemic heart disease. Elevated TnI levels are seen in patients with other cardiac conditions (including myocarditis and congestive heart failure), and slight TnI elevations occur in patients with other conditions, including sepsis, renal failure, acidosis, acute neurological disease, and persistent tachyarrhythmia. Performing Organization Address [facility] Phone Number [address] * Creatine Kinase (CK), Total and MB (06/05/2018 1:06 AM CDT) Only the most recent of 13 results within the time period is included. Total CK 453 (H) 29 - 200 U/L [facility] CK-MB 5.3 0.0 - 6.6 ng/mL [facility] MB Relative Index 1.2 % [facility] Specimen Blood - Line, Arterial Narrative Performed At CK-MB Reference Range: [facility] <6.7Normal [facility] 6.7-10.0Borderline >10.0 Abnormal Performing Organization Address [facility] Phone Number [address] [address] [phone] [place] [address] * Transfuse Leuko-Red RBC (06/04/2018 11:05 AM CDT) Only the most recent of 4 results within the time period is included. * Glucose-Stat Lab (06/04/2018 7:37 AM CDT) Only the most recent of 14 results within the time period is included. Glucose 103 70 - 110 mg/dL [facility] Specimen Blood, Arterial - Line, Arterial Performing Organization Address City/[facility] Phone Number [address] [address] [facility] * Blood gas, arterial (06/04/2018 7:37 AM CDT) Only the most recent of 14 results within the time period is included. pH, Arterial 7.38 7.35 - 7.45 [facility] pCO2, Arterial 35 35 - 45 mmHg [facility] pO2, Arterial 89 80 - 90 mmHg [facility] O2 Sat, Arterial 96.7 96.0 - 97.0 % [facility] HCO3, Arterial 20 (L) 21 - 29 mmol/L [facility] Base Excess, Arterial -4.1 (L) -2.0 - 3.0 mmol/L [facility] Patient Temperature 37.2 C [facility] FIO2 40.0 % [facility] Specimen Blood, Arterial - Line, Arterial Performing Organization Address [facility] Phone Number [address] [address] [phone] [place] [address] * Oxygen saturation, measured (06/04/2018 6:11 AM CDT) O2 Saturation (Measured) 67.6 % [facility] Specimen Blood Performing Organization Address City/[facility] Phone Number [address] [address] [phone] [place] [address] * HGB/HCT (H&H)-Stat Lab (06/04/2018 6:11 AM CDT) Only the most recent of 13 results within the time period is included. Hemoglobin 7.9 (L) 13.0 - 16.8 g/dL [facility] Hematocrit 23.0 (L) 40.0 - 50.0 % [facility] Specimen Blood, Arterial Performing Organization Address [facility] Phone Number [address] * Platelet Aggregation: Function Screen (06/04/2018 4:27 AM CDT) Only the most recent of 4 results within the time period is included. Weak ADP 96 (H) 60 - 91 % [facility] Plt. Function Screen 60-100% indicates normal [facility] Interpretation platelet function [facility] Pathologist: Kerrie Corea MD [facility] (electronic signature) [facility] Platelets 121 (L) 150 - 450 K/CU MM [facility] Specimen Blood Performing Organization Address [facility] Phone Number [address] * Potassium-Stat Lab (06/04/2018 4:27 AM CDT) Only the most recent of 11 results within the time period is included. Potassium 4.2 3.6 - 5.5 meq/L [facility] Specimen Blood, Arterial Performing Organization Address [facility] Phone Number [address] * Sodium Na-Stat Lab (06/04/2018 4:27 AM CDT) Only the most recent of 10 results within the time period is included. Sodium 140 135 - 148 meq/L [facility] Specimen Blood, Arterial Performing Organization Address [facility] Phone Number [address] * Calcium, Ionized (06/04/2018 4:27 AM CDT) Only the most recent of 7 results within the time period is included. Calcium, Ion 1.12 1.12 - 1.27 mmol/L [facility] pH, Blood 7.38 [facility] Specimen Blood Performing Organization Address City/[facility]/[place] [address] [phone] [place] [address] * Lactic acid, arterial, whole blood (06/04/2018 4:27 AM CDT) Only the most recent of 2 results within the time period is included. Lactate, Art 0.7 0.5 - 2.2 mmol/L [facility] Specimen Blood, Arterial Narrative Performed At Effective 02/16/2016: Units/Reference Range Change [facility] New: 0.5-2.2 mmol/LPrevious: 5-20 mg/dL [facility] Performing Organization Address City/[facility] Phone Number [place] [phone] * PT/aPTT (06/03/2018 4:41 PM CDT) Only the most recent of 6 results within the time period is included. Protime 17.6 (H) 11.7 - 14.7 seconds [facility] INR 1.5 <=5.9 [facility] PTT 28.7 22.5 - 36.0 seconds [facility] Specimen Blood Narrative Performed At RECOMMENDED COUMADIN/WARFARIN INR THERAPY RANGES [facility] STANDARD DOSE: 2.0 - 3.0 Includes: PROPHYLAXIS for venous thrombosis, [facility] systemic embolization; TREATMENT for venous thrombosis and/or pulmonary embolus. HIGH RISK: Target INR is 2.5-3.5 for patients with mechanical heart valves. Performing Organization Address City/State/[place] [address] [phone] [place] [address] * ANESTHESIA ASHLEY (06/03/2018 2:45 PM CDT) Narrative Performed At Toby Mcclellan MD 06/03/20182:45 PM ASHLEY Date: [...] Mcclellan MD - 06/03/2018 10:15 AM CDT ASHLEY Date: 06/03/2018 10:15 AM Sex: Male Location: OR Requesting Physician: ITA RBITTON Examiner: TOBY MCCLELLAN MA, CHRISTOPHER Indication: CABG [...] Annulus not dilated. No TR or TS LINDSEY - no SEC or thrombus visualized. Velocity [...] * POC ACTIVATED CLOTTING TIME (06/03/2018 2:36 PM CDT) Only the most recent of 6 results within the time period is included. Activated Clotting Time 120Comment: TESTED AT [facility] [address] [facility] [id number] [place] [address] Specimen Blood Performing Organization Address City/[facility] Phone Number [address] [address] [facility] * Thromboelastograph (TEG) (06/03/2018 2:32 PM CDT) TEG Activated Clotting 5.8 4.0 - 7.0 minutes [facility] TEG Fibrinogen Activity 67.1 61.0 - 73.0 degrees [facility] TEG Platelet Aggregation 60.7 55.0 - 65.0 MM [facility] TEG-H Activated Clotting 6.2 4.0 - 7.0 minutes [facility] TEG-H Fibrinogen Activity 68.3 61.0 - 73.0 degrees [facility] TEG-H Platelet 56.6 55.0 - 65.0 MM [facility] Aggregation [facility] Specimen Blood Performing Organization Address City/State/[facility] Phone Number [address] [address] [facility] * aPTT (06/03/2018 2:32 PM CDT) Only the most recent of 5 results within the time period is included. PTT 28.3 22.5 - 36.0 seconds [facility] Specimen Blood Performing Organization Address City/[facility] Phone Number [address] [address] [facility] * Prothrombin time/INR (06/03/2018 2:32 PM CDT) Only the most recent of 3 results within the time period is included. Protime 18.7 (H) 11.7 - 14.7 seconds [facility] INR 1.6 <=5.9 [facility] Specimen Blood Narrative Performed At RECOMMENDED COUMADIN/WARFARIN INR THERAPY RANGES [facility] STANDARD DOSE: 2.0 - 3.0 Includes: PROPHYLAXIS for venous thrombosis, [facility] systemic embolization; TREATMENT for venous thrombosis and/or pulmonary embolus. HIGH RISK: Target INR is 2.5-3.5 for patients with mechanical heart valves. Performing Organization Address [facility] Phone Number [address] * Fibrinogen (06/03/2018 2:32 PM CDT) Only the most recent of 3 results within the time period is included. Fibrinogen 347 225 - 434 mg/dl [facility] Specimen Blood Performing Organization Address [facility] Phone Number [address] * Platelet count (06/03/2018 2:32 PM CDT) Only the most recent of 2 results within the time period is included. Platelets 107 (L) 150 - 450 K/CU MM [facility] Specimen Blood Performing Organization Address [facility] Phone Number [address] * Filter Ionized Calcium (06/03/2018 11:00 AM CDT) Filter Ionized Calcium 1.19 mmol/L [facility] Specimen Blood Narrative Performed At Reference Range: No Normals [facility] Performing Organization Address [facility] Phone Number [address] * Prepare plasma (06/03/2018 8:53 AM CDT) Unit ABO O Pos SAFETRACE TX UNIT NUMBER [id number] SAFET[place]ACE [place] Status READY [place] Blood Bank Product FFP [place] PRODUCT CODE [id number] [place] Unit ABO O Pos SAFETRACE TX UNIT NUMBER [id number] SAFET[place]ACE [place] Status READY [place] Blood Bank Product FFP S[place] PRODUCT CODE [id number] [place] Specimen Blood Performing Organization Address [facility] Phone Number [place] * Urinalysis w/ Microscopic (06/02/2018 3:13 PM CDT) Color, UA Yellow [facility] Clarity, UA Clear [facility] Specific Fonda, UA 1.008 1.001 - 1.035 [facility] pH, UA 5.0 5.0 - 8.0 [facility] Protein, UA Negative Negative [facility] Glucose, UA Negative Negative [facility] Ketones, UA Negative Negative [facility] Bilirubin, UA Negative Negative [facility] Blood, UA Negative Negative [facility] Nitrite, UA Negative Negative [facility] Leukocytes, UA Negative Negative [facility] Urobilinogen, UA 0.2 0.2 - 1.0 mg/dL [facility] RBC, UA 0 /HPF [facility] WBC, UA <1 /HPF [facility] Specimen Source [facility] Specimen Urine Performing Organization Address City/[facility]/Zipcode Phone Number [facility] [address] [place] [address] [phone] [place] [address] * TSH (06/02/2018 3:13 PM CDT) TSH 1.18 0.35 - 4.94 uIU/mL [facility] Specimen Blood Performing Organization Address City/[facility]/Zipcode Phone Number [facility] [address] [place] [address] [facility] * ECG 12 lead (06/02/2018 5:11 AM CDT) Only the most recent of 3 results within the time period is included. Narrative Performed At Ventricular Rate 65 BPM GE MUSE Atrial Rate 65 BPM P-R Interval 156 ms QRS Duration 96 ms Q-T Interval 434 ms QTC Calculation(Bazett) 451 ms P [place] 31 degrees R [place] 0 degrees T [place] 94 degrees Poor data quality, interpretation may [...] 434 ms QTC Calculation(Bazett) 451 ms P [place] 31 degrees R [place] 0 degrees T [place] 94 degrees Poor data quality, interpretation may be adversely affected Normal sinus rhythm ST & T wave abnormality, consider anterolateral ischemia Abnormal ECG When compared with ECG of 01-JUN-2018 18:29, No significant change was found Confirmed by MD KATY, IHAB ([id number]) on 06/03/2018 9:19:27 PM Performing Organization Address City/[facility] Phone Number GE MUSE * Iron, TIBC, % sat. (without ferritin) (06/02/2018 5:03 AM CDT) Iron 80 40 - 160 ug/dL [facility] TIBC 265 250 - 450 ug/dL [facility] Iron % Saturation 30 20 - 55 % [facility] Specimen Blood Performing Organization Address [facility] Phone Number [address] [address] [facility] * Transferrin (06/02/2018 5:03 AM CDT) Transferrin 212 174 - 382 mg/dL [facility] Specimen Blood Performing Organization Address [facility] Phone Number [address] [address] [facility] * Iron, serum (06/02/2018 5:03 AM CDT) Iron 80 40 - 160 ug/dL [facility] Specimen Blood Performing Organization Address [facility] Phone Number [facility] [address] [address] [facility] * Ferritin (06/02/2018 5:03 AM CDT) Ferritin 180 5 - 275 ng/mL [facility] Specimen Blood Performing Organization Address City/State/Zipcode Phone Number [address] [address] [facility] * ECHOCARDIOGRAM REPORT - SCAN (06/01/2018 5:26 PM CDT) Narrative Performed At * Hemoglobin A1c (06/01/2018 11:57 AM CDT) Hemoglobin A1C 6.9 (H) 4.3 - 6.1 % [facility] Specimen Blood Performing Organization Address City/State/Zipcode Phone Number [address] [address] [phone] [place] [address] * 2D Echo W/Doppler(CW/PW/Color) (06/01/2018 10:07 AM CDT) Ejection Fraction [facility] Narrative Performed At Transthoracic Echocardiography Report (TTE) 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 Mech Circ SupportIntra Aortic Balloon Pump (IABP) is present. Chambers/Structures Left Atrium LA Volume: 59.2 mlLA Area: 19.15 cm^2 LA Vol. Index: 28 ml/m^2 Left Ventricle LVIDd: 5.18 cmLVEDV:188. 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 [facility] Circ Support Intra Aortic Balloon Pump (IABP) [...] CO: 5.26 l/min LVOT CI: 2.53 l/min/m^2 Performing Organization Address [facility] Phone Number [facility] * Type and screen, automated (06/01/2018 5:47 AM CDT) ABO/RH AUTOMATED (BEAKER) O POSITIVE [facility] Ab Scrn NEGATIVE [facility] Specimen Blood Performing Organization Address [facility] Phone Number [address] * B-type Natriuretic Factor (BNP) (06/01/2018 5:47 AM CDT) BNP 230 (H) 0 - 100 pg/mL [facility] Specimen Blood Performing Organization Address [facility] Phone Number [address] * Hepatic function panel (06/01/2018 5:47 AM CDT) Protein, Total 6.2 6.0 - 8.3 gm/dL [facility] Albumin 4.1 3.5 - 5.0 g/dL [facility] Total Bilirubin 0.7 0.2 - 1.2 mg/dL [facility] Bilirubin, Direct 0.3 0.1 - 0.5 mg/dL [facility] Alkaline Phosphatase 82 40 - 150 U/L [facility] AST 15 5 - 34 U/L [facility] ALT 13 6 - 55 U/L [facility] Specimen Blood Performing Organization Address City/State/Zipcode Phone Number [facility] [address] [place] [address] [facility] * Carotid doppler bilateral (06/01/2018 5:31 AM CDT) Ejection Fraction [facility] Impressions Performed At Right Impression [facility] 1. There is <50% diameter reduction (approximately 23% by 2-D measurement) [facility] in the internal carotid artery with a [...] + - Additional Measurements:ICAPSV/CCAPSV 0.85.ICAEDV/CCAEDV 1.04. Narrative Performed At LAB - Carotid Duplex Study [facility]ographics [facility] Patient Name AISHA ELY Date of Study06/01/2018 [id number] Visit Number [id number] Male Accession Number [id number] of Birth1955 [facility] Room [id number] Physician Dimple Maria Interpreting Harvinder Mayer MD T Mariela Mayer MD Procedure Type of Study: Cerebral: Carotid, CAROTID DOPPLER, BILATERAL. Indications for Study:Pre-Op Heart Bypass Surgery. Patient Status:Routine. Study Location:Portable. Technical Quality:Adequate visualization. Risk Factors History of Disease + + + + !Diagnosis !Date!Comments! + + + + !History/Risk Factors: !06/01/2018!NSTEMI! !! !ACS ! !! !IABP! !! !Previous smoker ! !! !TIA (03/2017) ! !! !DM! !! !HTN ! !! !HLD ! + + + + Procedure Note Interface, External Ris In - 06/01/2018 5:21 PM CDT PV LAB - Carotid Duplex Study Demographics Patient Name AISHA ELY Date of Study 06/01/2018 Age 63 Visit Number [id number] Gender Male Accession Number [id number] Date of 1955 Referring Rufina Barriga Room Number 2C23 Physician [employer] Caridad Maria Interpreting Harvinder Mayer MD RVT Physician Harvinder Mayer MD Procedure Type of [...] + + - Additional Measurements:ICAPSV/CCAPSV 0.85.ICAEDV/CCAEDV 1.04. Performing Organization Address City/State/Zipcode Phone Number [facility] * Insert arterial line (06/01/2018 4:46 AM CDT) Narrative Performed At Liliana Holland PA-C 06/01/20184:46 AM Insert Arterial [...] to verify the correct patient, procedure, equipment, support technician and site/side marked as required. Preparation: Patient [...] Lactic acid, venous, whole blood (06/01/2018 1:00 AM CDT) Lactate, Venous 0.7 0.5 - 2.2 mmol/L [facility] Specimen Blood Narrative Performed At Effective 02/16/2016: Units/Reference Range Change [facility] New: 0.5-2.2 mmol/LPrevious: 5-20 mg/dL [facility] Performing Organization Address City/State/Zipcode Phone Number [facility] [address] [place], [place] [phone] MEDICAL [facility]ENTER after 08/12/2017 Insurance Payer Benefit Subscriber ID Type Phone Address Plan / Group BLUE CROSS/BLUE SHIELD BCBS OS xxxxxxxxxxxx PPO [phone] [address] POS/PPO/[place] [address] O Advance Directives For more information, please contact: [facility] [address] [place], [place] [id number] Date Inactivated Comments Code Status Date Activated 06/09/2018 4:59 PM Full Code 06/02/2018 2:48 PM This code status was determined by: Patient 06/02/2018 2:48 PM Full Code 05/31/2018 11:56 PM This code status was determined by: Patient 05/31/2018 11:56 PM Full Code 05/31/2018 11:19 PM This code status was determined by: Patient
[2018-08-13 14:40] VITALS: BP 122/45
--- NOTE | 2018-08-30 09:55 | Operative Report ---
DATE OF PROCEDURE: August 13, 2018 PREOPERATIVE DIAGNOSIS: Dense cataract of the left eye. POSTOPERATIVE DIAGNOSIS: Dense cataract of the left eye. PROCEDURE: Complicated phacoemulsification of the posterior chamber with intraocular lens. ANESTHESIA: MAC. COMPLICATIONS: None. PROCEDURE: The patient was taken to the operating room where he had the eye prepped and draped in the usual sterile ophthalmic way. A lid speculum was placed in the left eye, and a side port incision was made. Then 0.2 mL of lidocaine preservative-free were injected into the anterior chamber. Viscoelastic was placed in the anterior chamber. Keratome was used to make a temporal corticoid incision due to poor dilation. A was used to dilate the pupil. Once this was done, forceps were used to create an anterior capsulorrhexis without any complications. Hydrodissection and hydrodelineation were then performed. The fluid wave was now had phacoemulsification. was entered in the eye and the nucleus was phacoemulsified using the riding time for technique. Irrigation and aspiration hand piece was used to remove any residual cortical material. Viscoelastic was put in the capsular bag, and a SN60WF 20.5 diopter lens was placed in the bag without any complications. The lumina ring was then removed. Irrigation and aspiration hand piece was used to remove any viscoelastic from within the eye. Miochol was injected into the anterior chamber. The wound was checked to make there was no leakage. It was secured and hydrated via BSS solution. The patient had Maxitrol ointment, patch and López shield placed, and was taken to the recovery room in good condition. Lens was an Chris SN60WF 20.5 diopter lens. Job#: [id number]
== END | disposition home or self-care (01) ==
LOC: OR 11:38
PROVIDERS: ATTEND Ophthalmology
DX: H25.12 Age-related nuclear cataract, left eye (principal); Z91.048 Other nonmedicinal substance allergy status; I25.810 Atherosclerosis of coronary artery bypass graft(s) without angina pectoris; I25.2 Old myocardial infarction; E11.9 Type 2 diabetes mellitus without complications; I10 Essential (primary) hypertension; E78.5 Hyperlipidemia, unspecified; Z91.040 Latex allergy status; Z91.041 Radiographic dye allergy status; Z79.82 Long term (current) use of aspirin; Z79.84 Long term (current) use of oral hypoglycemic drugs; Z95.1 Presence of aortocoronary bypass graft; Z86.73 Personal history of transient ischemic attack (TIA), and cerebral infarction without residual deficits; H57.09 Other anomalies of pupillary function
CPT/HCPCS: 36415; 66982; 82948; J2250; V2632

== ENCOUNTER → 2021-08-17 | Day surgery (SDC) | payer BC ==
[2021-08-15 13:07] LABS: BASOPHILS # (AUTO) 0.1 (0.0-0.1); BASOPHILS % 1.2 % (0.0-1.0); EOSINOPHILS # (AUTO) 0.2 (0.0-0.4); EOSINOPHILS % 2.1 % (0.0-6.0); HEMATOCRIT 31.6 % (38.2-49.6); HEMOGLOBIN 10.1 g/dL (14.0-18.0); LYMPHOCYTES # (AUTO) 1.8 (1.0-3.2); LYMPHOCYTES % 22.6 % (18.0-39.1); MEAN CORPUSCULAR VOLUME 93.8 fL (81-99); MONOCYTES # (AUTO) 0.6 (0.2-0.8); MONOCYTES % 8.2 % (4.4-11.3); NEUTROPHILS # (AUTO) 5.1 (2.1-6.9); NEUTROPHILS % 65.5 % (38.7-80.0); PLATELET COUNT 241 x10e3/uL (140-360); RED BLOOD COUNT 3.37 x10e6/uL (4.3-5.7); RED CELL DISTRIBUTION WIDTH 12.7 % (11.7-14.4)
[~2021-08-17] MED LIST changes: +AZOR 5-20 MG T1 EACH PO; +CENTRUM ADULTS1 EACH PO; +EPHEDRINE SULFATE INJ 50 MG/ML VIAL ONE; -GLIMEPIRIDE1 MG; +GLIMEPIRIDE1 MG PO; +GLUCAGON FOR INJ 1 MG VIAL ONE; +HYOSCYAMINE SULFATE 0.5 MG/ML INJ ONE; +LIDOCAINE HCL 2% LOCAL INJ 5 ML SDV VIAL INJ ONE; +METOCLOPRAMIDE HCL 10 MG/2ML VIAL ONE; +ONDANSETRON HCL INJ 2MG/ML 2ML 2 MG/ML VIAL ONE; -OR PHACO EYE KIT ONE; +OZEMPIC1 MG/0.75 SC; +PLAVIX75 MG PO; +POVIDONE IODINE 0.05% 0.05 % ML PO ONE; -PREOP PHACO EYE KIT ONE; +PROPOFOL IV EMULSION 10 MG/ML 20 ML VIAL ONE; +PROPOFOL IV EMULSION 10 MG/ML 50 ML VIAL IV ONE; +VITAMIN B122500 MCG PO; +VITAMIN D310 MCG PO
[2021-08-17 09:20] VITALS: BP 115/76
[2021-08-17 09:40] LABS: WBC,FECAL (FECAL LACTOFERRIN) NEGATIVE (NEGATIVE)
[2021-08-17 10:20] LABS: % IRON SATURATION 24 % (15-50); IRON 79 ug/dL (65-175); TOTAL IRON BINDING CAPACITY 332 ug/dL (261-478); TRANSFERRIN 237 mg/dL (174-364)
[2021-08-17 10:21] LABS: RETICULOCYTE % 1.7 % (0.8-2.2)
[2021-08-17 15:04] LABS: C DIFFICILE TOXIN A&B AMP PROB NEGATIVE (NEGATIVE)
== END | disposition home or self-care (01) ==
LOC: OR 07:54
PROVIDERS: ATTEND Internal Medicine Gastroenterology
DX: D64.89 Other specified anemias (principal); D12.3 Benign neoplasm of transverse colon; D12.4 Benign neoplasm of descending colon; D12.5 Benign neoplasm of sigmoid colon; K62.1 Rectal polyp; K29.70 Gastritis, unspecified, without bleeding; K22.89 Other specified disease of esophagus; K20.90 Esophagitis, unspecified without bleeding; K57.30 Diverticulosis of large intestine without perforation or abscess without bleeding; K62.89 Other specified diseases of anus and rectum; K59.00 Constipation, unspecified; K64.8 Other hemorrhoids; E11.9 Type 2 diabetes mellitus without complications; I25.810 Atherosclerosis of coronary artery bypass graft(s) without angina pectoris; I10 Essential (primary) hypertension; I45.10 Unspecified right bundle-branch block; F17.210 Nicotine dependence, cigarettes, uncomplicated; Z91.041 Radiographic dye allergy status; Z91.040 Latex allergy status; Z01.810 Encounter for preprocedural cardiovascular examination; Z01.812 Encounter for preprocedural laboratory examination; Z20.822 Contact with and (suspected) exposure to COVID-19; Z79.84 Long term (current) use of oral hypoglycemic drugs; Z95.1 Presence of aortocoronary bypass graft; Z86.73 Personal history of transient ischemic attack (TIA), and cerebral infarction without residual deficits
CPT/HCPCS: 36415; 43239; 45378; 45380; 45385; 82948; 83540; 83630; 83993; 84466; 85025; 85045; 85651; 86141; 86256; 86671; 87045; 87177; 87328; 87493; 93005; J1610; J1980; J2001; J2250; J2405; J2765; J3010; U0002

== ENCOUNTER → 2024-09-05 | Outpatient (REF) | payer MEDICARE, BC ==
[~2024-09-05] MED LIST changes: +ATORVASTATIN CA10 MG PO; +AZOR 10-20 MG1 EACH; -EPHEDRINE SULFATE INJ 50 MG/ML VIAL ONE; +FARXIGA10 MG; -FENTANYL CITRATE/PF 100MCG/2 ML INJ ONE; +FEROSUL325 MG PO; -GLUCAGON FOR INJ 1 MG VIAL ONE; -HYOSCYAMINE SULFATE 0.5 MG/ML INJ ONE; -LIDOCAINE HCL 2% LOCAL INJ 5 ML SDV VIAL INJ ONE; -METOCLOPRAMIDE HCL 10 MG/2ML VIAL ONE; -MIDAZOLAM HCL 2 MG/2 ML VIAL ONE; -ONDANSETRON HCL INJ 2MG/ML 2ML 2 MG/ML VIAL ONE; +OZEMPIC2 MG/0.75; -POVIDONE IODINE 0.05% 0.05 % ML PO ONE; -PROPOFOL IV EMULSION 10 MG/ML 20 ML VIAL ONE; -PROPOFOL IV EMULSION 10 MG/ML 50 ML VIAL IV ONE
== END ==
LOC: RAD 11:20
PROVIDERS: ATTEND Internal Medicine
DX: J44.9 Chronic obstructive pulmonary disease, unspecified (principal); R63.4 Abnormal weight loss; F17.211 Nicotine dependence, cigarettes, in remission
CPT/HCPCS: 71046

== ENCOUNTER 2024-09-16 09:28 | Inpatient (IN) | payer MEDICARE, BC ==
[~2024-09-16] VITALS: Ht 182.9 cm; Wt 76.7 kg
[2024-09-16 09:40] VITALS: TEMP 98.2
[2024-09-16 10:26] LABS: BASOPHILS % 0.1 % (0.0-1.0); EOSINOPHILS % 0.1 % (0.0-6.0); HEMATOCRIT 29.7 % (38.2-49.6); HEMOGLOBIN 8.9 g/dL (14.0-18.0); LYMPHOCYTES # (AUTO) 0.9 (1.0-3.2); MEAN CORPUSCULAR HEMOGLOBIN 28.4 pg (28-32); MEAN CORPUSCULAR VOLUME 94.9 fL (81-99); MONOCYTES % 5.2 % (4.4-11.3); NEUTROPHILS # (AUTO) 16.7 (2.1-6.9); NEUTROPHILS % 88.9 % (38.7-80.0); PLATELET COUNT 544 x10e3/uL (140-360); RED BLOOD COUNT 3.13 x10e6/uL (4.3-5.7); RED CELL DISTRIBUTION WIDTH 14.9 % (11.7-14.4); WHITE BLOOD COUNT 18.73 x10e3/uL (4.8-10.8)
[2024-09-16 10:42] LABS: INR 0.98; PROTHROMBIN TIME 13.6 seconds (11.9-14.5)
[2024-09-16 10:43] LABS: PARTIAL THROMBOPLASTIN TIME 28.9 seconds (23.8-35.5)
[2024-09-16 10:48] LABS: ALBUMIN 2.8 g/dL (3.5-5.0); ALBUMIN/GLOBULIN RATIO 0.8 (0.8-2.0); ANION GAP 16.9 mmol/L (8-16); BILIRUBIN,TOTAL 0.5 mg/dL (0.2-1.2); CALCIUM 9.1 mg/dL (8.4-10.2); CREATININE, SERUM 1.56 mg/dL (0.72-1.25); MAGNESIUM 1.6 MG/DL (1.3-2.1); TOTAL PROTEIN 6.4 g/dL (6.5-8.1)
[2024-09-16 10:52] LABS: POTASSIUM 5.9 mmol/L (3.5-5.1)
[2024-09-16] MEDS: ONDANSETRON HCL INJ 2MG/ML 2ML 2 MG/ML VIAL IV PRN (10:59)
[2024-09-16] MEDS ORDERED: IOPAMIDOL 370 MG/ML 100 ML INFUS..BTL INJ ONE (10:59)
[2024-09-16] MEDS: PREDNISONE 20 MG TAB PO SCH (11:00)
[2024-09-16] MEDS: SODIUM CHLORIDE 0.9% 500ML 500 ML IV ONE (11:00)
[2024-09-16] MEDS: Vancomycin IV 1 GM in SODIUM CHLORIDE 0.9% 250ML 250 ML IV ONE (11:00)
[2024-09-16] MEDS: Morphine 4mg INJECTION 4 MG/ML INJ IV PRN (11:02)
[2024-09-16 11:08] LABS: THYROID STIMULATING HORMONE 1.246 uIU/mL (0.350-4.940); TROPONIN I 0.017 ng/mL (0-0.300)
[2024-09-16 11:41] LABS: LYMPHOCYTES % (MANUAL) 1 % (19-48); MONOCYTES % (MANUAL) 5 % (3.4-9.0); NEUTROPHILS % (MANUAL) 94 % (40-74)
[2024-09-16] MEDS: INSULIN GLARGINE 100 UNITS/ML VIAL SQ ONE (11:41)
[2024-09-16] MEDS: INSULIN REGULAR, HUMAN 100 UNIT/1 ML IV ONE ×2 (11:41→19:14)
[2024-09-16 11:42] LABS: HYPOCHROMASIA SLIGHT; PLATELET ESTIMATE SLIGHTLY INCREASED; PLATELET MORPHOLOGY COMMENT NORMAL; RBC MORPHOLOGY COMMENT NORMAL
[2024-09-16] MEDS: SODIUM BICARBONATE 8.4% INJ 50 ML SYR IV STA (11:44)
[2024-09-16] MEDS: CALCIUM GLUC 1 G/50 ML NACL 50 ML IV ONE (11:48)
[2024-09-16 11:51] VITALS: PULSE 65; RESP 16
[2024-09-16] MEDS: SODIUM CHLORIDE 0.9% 1000ML 1,000 ML IV SCH (12:33)
[2024-09-16 13:00] VITALS: BP 154/62; PULSE 67; RESP 18; TEMP 98.6; O2SAT 100
[2024-09-16 13:13] VITALS: BP 154/62; PULSE 67; RESP 18; TEMP 98.6; O2SAT 100
[2024-09-16] MEDS ORDERED: DEXTROSE 50% SYRINGE 50 ML IV PRN (16:00)
[2024-09-16 16:12] VITALS: BP 137/64; PULSE 65; RESP 18; TEMP 99; O2SAT 100
[2024-09-16] MEDS: INSULIN REGULAR, HUMAN 100 UNIT/1 ML SQ SCH (17:02)
[2024-09-16 17:18] LABS: TROPONIN I 0.021 ng/mL (0-0.300)
[2024-09-16] MEDS: SOD POLYSTYRENE SULFONATE SUSP 15 GM/60 ML BTL PO ONE ×2 (19:04→21:23)
[2024-09-16] MEDS: FUROSEMIDE INJ 10 MG/ML 2 ML VIAL IV ONE (19:05)
[2024-09-16] MEDS: INSULIN GLARGINE 100 UNITS/ML VIAL SQ SCH (19:10)
[2024-09-16 19:15] LABS: CLARITY,URINE SL CLOUDY (CLEAR); COLOR,URINE YELLOW (YELLOW); LEUKOCYTE ESTERASE ,URINE NEGATIVE (NEGATIVE); NITRITE,URINE NEGATIVE (NEGATIVE); PH,URINE 5.5 (5 - 7)
[2024-09-16 19:16] LABS: BILIRUBIN,URINE NEGATIVE (NEGATIVE); GLUCOSE, URINE 500 (NEGATIVE); KETONES,URINE NEGATIVE (NEGATIVE); PROTEIN,URINE DIPSTICK 1+ (NEGATIVE); URINE UROBILINOGEN 0.2 mg/dL (0.2 - 1)
[2024-09-16 19:28] LABS: BACTERIA,URINE MODERATE /HPF; WBC,URINE (MAN) 0-5 /HPF (0-5)
[2024-09-16 20:00] VITALS: BP 129/58; PULSE 60; RESP 19; TEMP 98.4; O2SAT 100
[2024-09-17] VITALS (8 sets, daily range): BP systolic 124–157; BP diastolic 59–86; PULSE 64–87; RESP 18–20; TEMP 98.1–98.8; O2SAT 98–100
[2024-09-17 03:35] LABS: % IRON SATURATION 17 % (15-50); IRON 36 ug/dL (65-175); TOTAL IRON BINDING CAPACITY 209 ug/dL (261-478); TRANSFERRIN 149 mg/dL (174-364)
[2024-09-17 05:13] LABS: FOLATE 38.9 ng/mL (7.0-15.4)
[2024-09-17 06:24] LABS: EOSINOPHILS % 0.3 % (0.0-6.0); HEMATOCRIT 25.5 % (38.2-49.6); HEMOGLOBIN 8.2 g/dL (14.0-18.0); LYMPHOCYTES % 4.3 % (18.0-39.1); MEAN CORPUSCULAR HEMOGLOBIN 29.1 pg (28-32); MEAN CORPUSCULAR HGB CONC 32.2 g/dL (31-35); MEAN CORPUSCULAR VOLUME 90.4 fL (81-99); MONOCYTES % 3.5 % (4.4-11.3); NEUTROPHILS % 90.9 % (38.7-80.0); PLATELET COUNT 422 x10e3/uL (140-360); RED BLOOD COUNT 2.82 x10e6/uL (4.3-5.7); WHITE BLOOD COUNT 15.66 x10e3/uL (4.8-10.8)
[2024-09-17 06:25] LABS: BASOPHILS % 0.1 % (0.0-1.0); EOSINOPHILS # (AUTO) 0.1 (0.0-0.4); LYMPHOCYTES # (AUTO) 0.7 (1.0-3.2); MONOCYTES # (AUTO) 0.6 (0.2-0.8); NEUTROPHILS # (AUTO) 14.2 (2.1-6.9)
[2024-09-17 06:56] LABS: ALBUMIN 2.2 g/dL (3.5-5.0); ALBUMIN/GLOBULIN RATIO 0.8 (0.8-2.0); ANION GAP 13.7 mmol/L (8-16); BILIRUBIN,TOTAL 0.4 mg/dL (0.2-1.2); CALCIUM 8.4 mg/dL (8.4-10.2); CREATININE, SERUM 1.38 mg/dL (0.72-1.25); POTASSIUM 4.7 mmol/L (3.5-5.1); TOTAL PROTEIN 5.1 g/dL (6.5-8.1)
[2024-09-17 07:17] LABS: MAGNESIUM 1.3 MG/DL (1.3-2.1)
[2024-09-17 07:29] LABS: PHOSPHORUS 2.8 MG/DL (2.3-4.7)
[2024-09-17 07:41] LABS: TROPONIN I 0.014 ng/mL (0-0.300)
[2024-09-17] MEDS: IRON SUCROSE 100 MG in SODIUM CHLORIDE 0.9% 100 ML IV SCH (14:36)
[2024-09-17] MEDS: BISACODYL 5 MG TAB EC PO ONE (14:56)
[2024-09-17] MEDS: BISACODYL 5 MG TAB EC PO SCH (16:44)
[2024-09-17] MEDS: CITRATE OF MAGNESIA 300ML BOTTLE PO ONE (23:02)
[2024-09-18 00:52] VITALS: BP 124/43; PULSE 72; RESP 18; TEMP 98.5; O2SAT 99
[2024-09-18 04:52] VITALS: BP 116/45; PULSE 73; RESP 17; TEMP 98.6; O2SAT 100
[2024-09-18] MEDS: CITRATE OF MAGNESIA 300ML BOTTLE PO ONE (05:39)
[2024-09-18 06:46] LABS: BASOPHILS % 0.3 % (0.0-1.0); EOSINOPHILS # (AUTO) 0.1 (0.0-0.4); EOSINOPHILS % 0.4 % (0.0-6.0); HEMATOCRIT 23.6 % (38.2-49.6); LYMPHOCYTES # (AUTO) 0.6 (1.0-3.2); LYMPHOCYTES % 4.9 % (18.0-39.1); MEAN CORPUSCULAR HEMOGLOBIN 28.8 pg (28-32); MEAN CORPUSCULAR HGB CONC 30.5 g/dL (31-35); MEAN CORPUSCULAR VOLUME 94.4 fL (81-99); MONOCYTES # (AUTO) 0.8 (0.2-0.8); MONOCYTES % 6.6 % (4.4-11.3); NEUTROPHILS # (AUTO) 10.3 (2.1-6.9); NEUTROPHILS % 86.9 % (38.7-80.0); PLATELET COUNT 366 x10e3/uL (140-360); RED CELL DISTRIBUTION WIDTH 15.3 % (11.7-14.4)
[2024-09-18 06:47] LABS: HEMOGLOBIN 7.2 g/dL (14.0-18.0)
[2024-09-18 07:14] LABS: ALBUMIN 1.9 g/dL (3.5-5.0); ALBUMIN/GLOBULIN RATIO 0.7 (0.8-2.0); ANION GAP 13.5 mmol/L (8-16); BILIRUBIN,TOTAL 0.4 mg/dL (0.2-1.2); CALCIUM 7.7 mg/dL (8.4-10.2); CREATININE, SERUM 1.9 mg/dL (0.72-1.25); POTASSIUM 3.5 mmol/L (3.5-5.1); TOTAL PROTEIN 4.6 g/dL (6.5-8.1)
[2024-09-18] MEDS: SODIUM CHLORIDE 0.9% 1000ML 1,000 ML IV SCH (08:46)
[2024-09-18 09:46] VITALS: BP 122/51; PULSE 78; RESP 20; TEMP 98.7; O2SAT 100
[2024-09-18 10:00] VITALS: BP 122/51; PULSE 78; RESP 20; TEMP 98.7; O2SAT 100
[2024-09-18] MEDS: POTASSIUM CHLORIDE 20MEQ/100ML 100 ML IV ONE (10:07)
[2024-09-18 13:30] VITALS: TEMP 97.4
[2024-09-18 14:00] VITALS: BP 125/61; PULSE 75; RESP 16; O2SAT 97
[2024-09-18] MEDS ORDERED: CIPRO250 MG PO (14:59)
[2024-09-18] MEDS ORDERED: TRESIBA100 UNIT/1 SQ (15:00)
[2024-09-18] MEDS ORDERED: MORPHINE SULFAT30 M2 PO (15:01)
[2024-09-18] MEDS: Morphine 2mg Syringe 2 MG/ML SYR IV PRN (15:37)
[2024-09-18] MEDS ORDERED: HYDROCORTISONE ACETATE 25 MG/SUPP.RECT SUPP RC SCH (17:00)
== END 2024-09-18 16:17 | disposition home or self-care (01) | DRG 686 ==
LOC: ER 09:36 → ERHOLD 10:25 → MED/SURG3 13:18
PROVIDERS: ADMIT Internal Medicine; ATTEND Internal Medicine
PROC: 0DBP8ZZ Excision of Rectum, Via Natural or Artificial Opening Endoscopic (ICD-10-PCS; principal; 2024-09-18 12:35)
DX: C64.2 Malignant neoplasm of left kidney, except renal pelvis (principal); E43 Unspecified severe protein-calorie malnutrition; C78.7 Secondary malignant neoplasm of liver and intrahepatic bile duct; C79.51 Secondary malignant neoplasm of bone; I13.0 Hypertensive heart and chronic kidney disease with heart failure and stage 1 through stage 4 chronic kidney disease, or unspecified chronic kidney disease; I50.32 Chronic diastolic (congestive) heart failure; K62.5 Hemorrhage of anus and rectum; E11.65 Type 2 diabetes mellitus with hyperglycemia; C64.1 Malignant neoplasm of right kidney, except renal pelvis; E87.5 Hyperkalemia; R63.4 Abnormal weight loss; Z68.22 Body mass index [BMI] 22.0-22.9, adult; E11.22 Type 2 diabetes mellitus with diabetic chronic kidney disease; N18.31 Chronic kidney disease, stage 3a; Z79.85 Long-term (current) use of injectable non-insulin antidiabetic drugs; Z79.4 Long term (current) use of insulin; Z79.84 Long term (current) use of oral hypoglycemic drugs; D63.1 Anemia in chronic kidney disease; D63.8 Anemia in other chronic diseases classified elsewhere; D50.9 Iron deficiency anemia, unspecified; R80.9 Proteinuria, unspecified; T38.0X5A Adverse effect of glucocorticoids and synthetic analogues, initial encounter; Y92.230 Patient room in hospital as the place of occurrence of the external cause; K57.30 Diverticulosis of large intestine without perforation or abscess without bleeding; K62.1 Rectal polyp; K64.8 Other hemorrhoids; K58.9 Irritable bowel syndrome, unspecified; I25.10 Atherosclerotic heart disease of native coronary artery without angina pectoris; Z95.1 Presence of aortocoronary bypass graft; M35.3 Polymyalgia rheumatica; Z71.3 Dietary counseling and surveillance; Z86.0100 Personal history of colon polyps, unspecified; Z86.73 Personal history of transient ischemic attack (TIA), and cerebral infarction without residual deficits; Z87.891 Personal history of nicotine dependence; Z79.52 Long term (current) use of systemic steroids; Z79.02 Long term (current) use of antithrombotics/antiplatelets; Z79.899 Other long term (current) drug therapy; Z79.82 Long term (current) use of aspirin
CPT/HCPCS: 36415; 45378; 45385; 70491; 71260; 74177; 80053; 81001; 82550; 82607; 82746; 82948; 83540; 83735; 84100; 84132; 84443; 84466; 84484; 85025; 85045; 85610; 85651; 85730; 87040; 87086; 88305; 93005; 99284; J0612; J1756; J1815; J1940; J1980; J2003; J2270; J2405; J2470; J2543; J3480; J7030; J7040; J7050; J7512; Q9967

== ENCOUNTER 2024-11-03 20:03 | Inpatient (IN) | payer MEDICARE, BC ==
[~2024-11-03] VITALS: Ht 182.9 cm; Wt 79.4 kg
[~2024-11-03 20:03] MED LIST changes: +CIPRO250 MG PO; +MORPHINE SULFAT30 M2 PO; +TRESIBA100 UNIT/1 SQ
[2024-11-03 20:20] VITALS: TEMP 97.7
[2024-11-03 20:40] LABS: BASOPHILS # (AUTO) 0.1 (0.0-0.1); BASOPHILS % 0.4 % (0.0-1.0); HEMATOCRIT 25.9 % (38.2-49.6); HEMOGLOBIN 8.1 g/dL (14.0-18.0); LYMPHOCYTES # (AUTO) 0.5 (1.0-3.2); LYMPHOCYTES % 4.5 % (18.0-39.1); MEAN CORPUSCULAR HEMOGLOBIN 27.6 pg (28-32); MEAN CORPUSCULAR HGB CONC 31.3 g/dL (31-35); MEAN CORPUSCULAR VOLUME 88.1 fL (81-99); MONOCYTES # (AUTO) 0.8 (0.2-0.8); MONOCYTES % 6.6 % (4.4-11.3); NEUTROPHILS # (AUTO) 10.4 (2.1-6.9); NEUTROPHILS % 88.2 % (38.7-80.0); PLATELET COUNT 402 x10e3/uL (140-360); RED BLOOD COUNT 2.94 x10e6/uL (4.3-5.7); RED CELL DISTRIBUTION WIDTH 13.5 % (11.7-14.4); WHITE BLOOD COUNT 11.84 x10e3/uL (4.8-10.8)
[2024-11-03] MEDS: SODIUM CHLORIDE 0.9% 1000ML 1,000 ML IV STA (21:03)
[2024-11-03] MEDS: ONDANSETRON HCL INJ 2MG/ML 2ML 2 MG/ML VIAL IV STA (21:04)
[2024-11-03 21:09] LABS: ALANINE AMINOTRANSFERASE 11 IU/L (0-55); ALBUMIN 2.7 g/dL (3.5-5.0); ALBUMIN/GLOBULIN RATIO 0.7 (0.8-2.0); ALKALINE PHOSPHATASE 134 IU/L (40-150); ANION GAP 22.1 mmol/L (8-16); BLOOD UREA NITROGEN 48 mg/dL (7-26); BUN/CREATININE RATIO 8 (6-25); CARBON DIOXIDE 19 mmol/L (22-29); CHLORIDE 81 mmol/L (98-107); CREATINE KINASE 103 IU/L (30-200); EST GLOMERULAR FILTRATION RATE 9 ML/MIN (>=60); GLUCOSE 319 mg/dL (74-118); LIPASE 22 U/L (8-78); POTASSIUM 5.1 mmol/L (3.5-5.1); TOTAL PROTEIN 6.4 g/dL (6.5-8.1)
[2024-11-03 21:12] LABS: SODIUM 117 mmol/L (136-145)
[2024-11-03] MEDS ORDERED: ONDANSETRON HCL INJ 2MG/ML 2ML 2 MG/ML VIAL IV PRN (21:45)
[2024-11-03] MEDS ORDERED: Morphine 4mg INJECTION 4 MG/ML INJ IV PRN (21:45)
[2024-11-03 22:56] LABS: TROPONIN I < 0.05 ng/mL (0.0-0.40)
[2024-11-03 23:00] VITALS: PULSE 58; RESP 14; RESP 16; O2SAT 100
[2024-11-03 23:53] VITALS: BP 121/61; PULSE 57; RESP 12; TEMP 97.8; O2SAT 94
[2024-11-04] VITALS (27 sets, daily range): BP systolic 99–143; BP diastolic 45–96; PULSE 49–66; RESP 7–19; TEMP 97.8–98.7; O2SAT 95–100
[2024-11-04 00:26] LABS: BILIRUBIN,URINE NEGATIVE (NEGATIVE); CLARITY,URINE SL CLOUDY (CLEAR); COLOR,URINE YELLOW (YELLOW); GLUCOSE, URINE NEGATIVE (NEGATIVE); KETONES,URINE NEGATIVE (NEGATIVE); LEUKOCYTE ESTERASE ,URINE NEGATIVE (NEGATIVE); NITRITE,URINE NEGATIVE (NEGATIVE); PH,URINE 5 (5 - 7); PROTEIN,URINE DIPSTICK 2+ (NEGATIVE); URINE UROBILINOGEN 0.2 mg/dL (0.2 - 1)
[2024-11-04 00:43] LABS: BACTERIA,URINE FEW /HPF; EPITHELIAL CELLS,URINE RARE /LPF; HYALINE CASTS 0-1 (0-1); RBC,URINE 0-5 /HPF (0-5); WBC,URINE (MAN) 0-5 /HPF (0-5)
[2024-11-04] MEDS: SODIUM CHLORIDE 0.9% 1000ML 1,000 ML IV SCH (00:44)
[2024-11-04] MEDS ORDERED: SENNA LAXATIVE8.6 MG PO (01:03)
[2024-11-04] MEDS ORDERED: ASPIRIN EC81 MG PO (01:03)
[2024-11-04] MEDS ORDERED: AMLODIPINE BESY10 MG PO (01:03)
[2024-11-04] MEDS ORDERED: LOKELMA10 GM PO (01:03)
[2024-11-04] MEDS ORDERED: BUMETANIDE1 MG PO (01:03)
[2024-11-04] MEDS ORDERED: METOPROLOL TART50 MG PO (01:03)
[2024-11-04 02:29] LABS: BLOOD UREA NITROGEN 49 mg/dL (7-26); GLUCOSE 310 mg/dL (74-118); OSMOLALITY,SERUM 261 mOsm/kg (278-305)
[2024-11-04 02:32] LABS: SODIUM 117 mmol/L (136-145)
[2024-11-04 08:12] LABS: BASOPHILS # (AUTO) 0.1 (0.0-0.1); BASOPHILS % 0.5 % (0.0-1.0); EOSINOPHILS # (AUTO) 0.2 (0.0-0.4); EOSINOPHILS % 1.6 % (0.0-6.0); HEMATOCRIT 24.5 % (38.2-49.6); LYMPHOCYTES # (AUTO) 1.2 (1.0-3.2); MEAN CORPUSCULAR HEMOGLOBIN 27.7 pg (28-32); MEAN CORPUSCULAR HGB CONC 31.4 g/dL (31-35); MEAN CORPUSCULAR VOLUME 88.1 fL (81-99); MONOCYTES # (AUTO) 1.6 (0.2-0.8); MONOCYTES % 12.6 % (4.4-11.3); NEUTROPHILS # (AUTO) 9.3 (2.1-6.9); NEUTROPHILS % 74.8 % (38.7-80.0); PLATELET COUNT 485 x10e3/uL (140-360); RED BLOOD COUNT 2.78 x10e6/uL (4.3-5.7); RED CELL DISTRIBUTION WIDTH 13.2 % (11.7-14.4); WHITE BLOOD COUNT 12.42 x10e3/uL (4.8-10.8)
[2024-11-04 08:17] LABS: HEMOGLOBIN 7.7 g/dL (14.0-18.0)
[2024-11-04 08:40] LABS: ALBUMIN 2.5 g/dL (3.5-5.0); ALBUMIN/GLOBULIN RATIO 0.8 (0.8-2.0); ANION GAP 19.2 mmol/L (8-16); BILIRUBIN,TOTAL 0.6 mg/dL (0.2-1.2); CALCIUM 7.8 mg/dL (8.4-10.2); CREATININE, SERUM 5.37 mg/dL (0.72-1.25); POTASSIUM 4.2 mmol/L (3.5-5.1); TOTAL PROTEIN 5.8 g/dL (6.5-8.1)
[2024-11-04] MEDS ORDERED: DEXTROSE 50% SYRINGE 50 ML IV PRN (09:45)
[2024-11-04] MEDS: INSULIN REGULAR, HUMAN 100 UNIT/1 ML SQ SCH (12:58)
[2024-11-04] MEDS: SENNOSIDES 8.6 MG TAB PO SCH (17:00)
[2024-11-04] MEDS: INSULIN GLARGINE 100 UNITS/ML VIAL SQ SCH (20:47)
[2024-11-04] MEDS ORDERED: ATORVASTATIN 10 MG TAB PO SCH (21:00)
[2024-11-05] VITALS (12 sets, daily range): BP systolic 103–136; BP diastolic 45–80; PULSE 57–77; RESP 11–17; TEMP 98.2–98.8; O2SAT 94–100
[2024-11-05 06:29] LABS: BASOPHILS # (AUTO) 0.1 (0.0-0.1); BASOPHILS % 0.6 % (0.0-1.0); EOSINOPHILS # (AUTO) 0.3 (0.0-0.4); EOSINOPHILS % 3.7 % (0.0-6.0); HEMATOCRIT 23.7 % (38.2-49.6); LYMPHOCYTES # (AUTO) 0.3 (1.0-3.2); MEAN CORPUSCULAR HEMOGLOBIN 28.1 pg (28-32); MEAN CORPUSCULAR HGB CONC 31.6 g/dL (31-35); MEAN CORPUSCULAR VOLUME 88.8 fL (81-99); MONOCYTES # (AUTO) 0.7 (0.2-0.8); MONOCYTES % 8.8 % (4.4-11.3); NEUTROPHILS # (AUTO) 6.4 (2.1-6.9); NEUTROPHILS % 82.4 % (38.7-80.0); PLATELET COUNT 488 x10e3/uL (140-360); RED BLOOD COUNT 2.67 x10e6/uL (4.3-5.7); RED CELL DISTRIBUTION WIDTH 13.4 % (11.7-14.4)
[2024-11-05 06:41] LABS: HEMOGLOBIN 7.5 g/dL (14.0-18.0)
[2024-11-05 07:05] LABS: ALBUMIN 2.1 g/dL (3.5-5.0); ALBUMIN/GLOBULIN RATIO 0.7 (0.8-2.0); ANION GAP 16.5 mmol/L (8-16); BILIRUBIN,TOTAL 0.4 mg/dL (0.2-1.2); CALCIUM 7.8 mg/dL (8.4-10.2); CREATININE, SERUM 3.35 mg/dL (0.72-1.25); POTASSIUM 4.5 mmol/L (3.5-5.1)
[2024-11-05] MEDS: FERROUS SULFATE 325 MG TAB PO SCH (09:07)
[2024-11-05] MEDS: MULTIVITAMINS/MINERALS TAB PO SCH (09:07)
== END 2024-11-05 12:28 | disposition home or self-care (01) | DRG 682 ==
LOC: ER 20:10 → ERHOLD 21:40 → ICU 23:46
PROVIDERS: ADMIT Internal Medicine; ATTEND Internal Medicine
DX: N17.9 Acute kidney failure, unspecified (principal); J15.69 Pneumonia due to other Gram-negative bacteria; C79.51 Secondary malignant neoplasm of bone; E44.0 Moderate protein-calorie malnutrition; C78.7 Secondary malignant neoplasm of liver and intrahepatic bile duct; I50.32 Chronic diastolic (congestive) heart failure; E87.1 Hypo-osmolality and hyponatremia; C64.1 Malignant neoplasm of right kidney, except renal pelvis; J98.11 Atelectasis; N18.30 Chronic kidney disease, stage 3 unspecified; D63.1 Anemia in chronic kidney disease; I25.10 Atherosclerotic heart disease of native coronary artery without angina pectoris; E86.0 Dehydration; D50.9 Iron deficiency anemia, unspecified; E11.22 Type 2 diabetes mellitus with diabetic chronic kidney disease; R33.9 Retention of urine, unspecified; R11.2 Nausea with vomiting, unspecified; R53.81 Other malaise; Z68.23 Body mass index [BMI] 23.0-23.9, adult; Z79.4 Long term (current) use of insulin; Z95.1 Presence of aortocoronary bypass graft; Z86.73 Personal history of transient ischemic attack (TIA), and cerebral infarction without residual deficits; Z91.048 Other nonmedicinal substance allergy status; Z91.040 Latex allergy status; Z88.8 Allergy status to other drugs, medicaments and biological substances; Z87.891 Personal history of nicotine dependence
CPT/HCPCS: 36415; 51700; 71250; 74176; 76770; 80053; 81001; 82550; 82947; 82948; 83690; 83935; 84156; 84295; 84300; 84484; 84520; 85025; 93005; 93970; 94799; 96372; 99284; J0692; J2405; J7030